=== PATIENT | female | born 1955 | race Caucasian/White ===

== ENCOUNTER 2017-03-29 08:19 | Inpatient (IN) | payer MEDICARE, MEDICAID ==
[~2017-03-29] VITALS: Ht 154.9 cm; Wt 41.9 kg
[2017-03-29] MEDS ORDERED: ADV250INH INH (08:35)
[2017-03-29] MEDS ORDERED: FOSI10TA2 PO (08:35)
[2017-03-29] MEDS ORDERED: ASPI1TAB PO (08:35)
[2017-03-29] MEDS ORDERED: SERT50TA PO (08:35)
[2017-03-29] MEDS ORDERED: SIMV40TA2 PO (08:35)
[2017-03-29] MEDS ORDERED: ATEN25TA PO (08:35)
[2017-03-29] MEDS ORDERED: NS 500 ML IV ONE (08:45)
[2017-03-29] MEDS ORDERED: FOSINOPRIL PO SCH (09:00)
--- NOTE | 2017-03-29 09:26 | REP ---
Clinical: Altered mental status with suspected seizures/syncope . Comparison: None . Findings: The ventricles, sulci, and cisterns are normal in position and appearance. Busch-white differentiation is maintained. No acute intracranial hemorrhage, mass/mass effect, pathology or trauma/injury. No evidence for acute infarction. No extra-axial fluid collection. Calvarium is intact. Paranasal sinuses and mastoid air cells are clear. Impression: Normal noncontrast head CT. No evidence for acute intracranial pathology or trauma/injury. Signed by Mike Vivas MD 03/29/2017 09:18 A
[2017-03-29 09:27] LABS: ADD MANUAL DIFFER YES; DIFF SLIDE NUMBER 74; MEAN CORPUSCULAR HEMOGLOBIN 35.5 pg (27.0-33.0); MEAN CORPUSCULAR VOLUME 94.9 fl (80.0-96.0); PLATELET COUNT, AUTOMATED 262 k/mm3 (150-450); RED CELL DISTRIBUTION WIDTH 11.5 % (11.5-14.5)
--- NOTE | 2017-03-29 09:27 | REP ---
Clinical: Altered mental status . Comparison: 04/23/2016 . Findings: The mediastinum and cardiac silhouette are stable and within normal limits for portable technique. The lung gallegos suggest mild bibasilar fibroatelectatic changes without focal consolidation, effusion, or pneumothorax. Skeletal structures are intact. Impression: Acute versus chronic bibasilar fibroatelectatic changes. Signed by Mike Vivas MD 03/29/2017 09:19 A
[2017-03-29 09:38] LABS: ABG BASE EXCESS -0.7 (-2.0-2.0); ABG HCO3 23.4 MEQ/L (22.0-26.0); ABG PARTIAL PRESSURE CO2 37.3 mmHg (35.0-45.0); ABG PARTIAL PRESSURE O2 61.5 mmHg (75.0-100.0); ABG STANDARD HCO3 23.7 MEQ/L (22.0-26.0); ABG TOTAL CO2 24.6 MEQ/L (23.0-31.0); ABG pH (ARTERIAL) 7.416 UNITS (7.350-7.450)
[2017-03-29 09:56] LABS: MEAN CORPUSCULAR HGB CONC 37.4 g/dl (32.0-36.5)
[2017-03-29 09:59] LABS: ALBUMIN 3.8 GM/DL (3.2-5.2); ALBUMIN/GLOBULIN RATIO 1.58 (1.00-1.93); ALKALINE PHOSPHATASE 156 U/L (45-117); ALT/SGPT 17 U/L (12-78); ANION GAP 12 MEQ/L (8-16); AST/SGOT 23 U/L (15-37); BILIRUBIN,DIRECT 0.4 MG/DL (0.0-0.2); BILIRUBIN,TOTAL 1.3 MG/DL (0.2-1.0); BLOOD UREA NITROGEN 2 MG/DL (7-18); CALCIUM LEVEL 8.1 MG/DL (8.8-10.2); CARBON DIOXIDE LEVEL 25 MEQ/L (21-32); CHLORIDE LEVEL 85 MEQ/L (98-107); CREATININE FOR GFR 0.58 MG/DL (0.55-1.02); GLOMERULAR FILTRATION RATE > 60.0 (>45); GLUCOSE, FASTING 160 MG/DL (80-110); SODIUM LEVEL 122 MEQ/L (136-145); TOTAL PROTEIN 6.2 GM/DL (6.4-8.2)
[2017-03-29 10:19] LABS: OSMOLALITY SERUM 246 MOSM/KG (280-301)
[2017-03-29 10:21] LABS: POTASSIUM SERUM 2.8 MEQ/L (3.5-5.1)
[2017-03-29 10:25] LABS: BASOPHILS 1 % (0-4)
[2017-03-29 10:31] LABS: ANISOCYTOSIS 1+; BURR CELLS 1+
[2017-03-29] MEDS: POTASSIUM CHLORIDE 10 MEQ SR TABLET PO ONE ×2 (11:45→11:52)
[2017-03-29] MEDS ORDERED: POTASSIUM CHLORIDE 10% LIQ 20 MEQ/15 ML UDC PO ONE (12:00)
[2017-03-29] MEDS ORDERED: SIMV20TA2 PO (13:49)
[2017-03-29] MEDS ORDERED: ALBU17IN INH (13:51)
[2017-03-29] MEDS ORDERED: INCR1INH INH (13:51)
[2017-03-29] MEDS ORDERED: NITR4TASL SL (13:52)
[2017-03-29] MEDS ORDERED: ALBUTEROL 90 MCG/ACT 8GM HFA INHALER INH PRN (14:00)
[2017-03-29] MEDS ORDERED: LORazepam 2 MG TAB PO PRN (14:00)
[2017-03-29] MEDS ORDERED: ONDANSETRON 4MG/2ML VIAL (J2405) IV PRN (14:00)
[2017-03-29] MEDS ORDERED: NITROGLYCERIN 0.4 MG SUBL TABLET SL PRN (14:00)
[2017-03-29] MEDS: KCL 40MEQ in NS 1000ML 1,000 ML IV SCH (14:48)
[2017-03-29] MEDS: PANTOPRAZOLE 40MG INJ (PROTONIX) (C9113) IV SCH (14:48)
[2017-03-29] MEDS: NICOTINE 21MG/24HR 1 EA TRANSDERMAL TD SCH (14:49)
[2017-03-29] MEDS ORDERED: AZIT200S30 PO (14:52)
[2017-03-29] MEDS ORDERED: AZIT20SS2 PO (14:52)
[2017-03-29] MEDS ORDERED: MAG SULF 1GM/100ML (MAG RUN) 1 GM in APPROPRIATE DILUENT 1 EA IV ONE (15:00)
--- NOTE | 2017-03-29 15:40 | HPE ---
DATE OF ADMISSION: 03/29/2017 CHIEF COMPLAINT: 61-year-old female brought in by family member due to history of shaking, loss of consciousness, rolling of her eye, that started earlier this morning. HISTORY OF PRESENT ILLNESS: This is a 61-year-old female with significant past medical history of coronary artery disease, hypertension, hyperlipidemia, chronic obstructive pulmonary disease (COPD), depression, who recently was diagnosed with inner ear infection and vertigo and currently being treated with antibiotic which she took first dose yesterday, name unknown at this time, who was brought in by family member due to history of seizure-like activity described as head and upper extremity shaking, rolling of her eyes backward, loss of consciousness, dropping to her knee with loss of urine and stool. Patient does not have any history of seizure activities in the past that patient is aware of or the family is aware of. Patient had this episode around 6 in the morning. Patient has a history of alcohol abuse. Patient states that she drinks two beers per night, but as per family member, may be up to four or more per night. Patient states that her last drink was last night, but as per family member, it was earlier this morning. Patient has a history of smoking 1-1/2 pack per day, but as per family member, she smokes three packs a day. Patient seemed to have a chronic cough, which is unchanged. Denies of any use of oxygen therapy at home, but she does have chronic sputum which is unchanged. Patient also had complained of low-grade fever at home with urinary urgency and intermittent incontinence. She also mentioned that she has foul-smelling urine that daly intermittently. Patient is resting comfortably in the emergency room. No seizure-like activity noted. Family at the bedside. REVIEW OF SYSTEMS: 10-point review of systems is negative, other than those described in the history of present illness (HPI). PAST MEDICAL HISTORY: Is significant for; Coronary artery disease. Hypertension. Hyperlipidemia. COPD. Depression. Recently diagnosed with inner ear infection and vertigo and is supposed to be on antibiotics. Alcohol abuse. SURGICAL HISTORY: Includes; Carpal tunnel surgery. Stent placement. SOCIAL HISTORY: Patient drinks 2-4 beers or perhaps more alcohol per night. Last drink was this morning as per family member. She smokes 1-1/2 to three packs per day. Denies intravenous (IV) drug abuse. FAMILY MEDICAL HISTORY: Noncontributory at this time. Patient is ALLERGIC to PENICILLIN, which causes hives. MEDICATIONS FROM HOME: Are as follows; - albuterol sulfate two puffs every 4 hours as needed - aspirin 81 mg by mouth daily - atenolol 25 mg by mouth daily - fosinopril 5 mg by mouth daily - Incruse Ellipta 62.5 mcg daily - nitroglycerine 0.4 sublingual every 5 minutes as needed for chest pain - Advair Diskus 250/50 mcg one puff twice a day - sertraline 100 mg by mouth daily - simvastatin 20 mg by mouth daily There seemed to be not a list of the antibiotic for her inner ear infection, but the medication is already reconciled. Will speak to the roofing technician and try to contact [facility] to obtain the antibiotic that the patient should be on. In terms of physical examination her vital signs are as follows: Last known temperature is; none for me to review at this time, but last pulse rate of 86, blood pressure is 129/77, heart rate of 86, saturating 100% on room air. Respiratory rate on my examination is 14. Again, no temperature for me to review at this time. HEENT: Normocephalic. No trauma noted. Inspection of the eyes, nose, and throat is within normal. Pupils equal, round, and reactive to light and accommodation. Mucosa is moist. Examination of her tongue did not show any obvious laceration. NECK: Is supple. No tracheal deviation. CARDIAC: S1, S2, regular rate and rhythm. Pulses present. LUNGS: Equal air entry. Did not hear any wheezes, rales, or rhonchi. ABDOMEN: Is soft, nontender. Bowel sounds present. LOWER EXTREMITIES: No significant pitting edema. Capillary refill present all four extremities. SKIN: Is intact. Warm to touch, afebrile. Patient is currently awake, alert, oriented, but intermittently confused and provides some history with some slight confusion, and does go off on slight tangent. Family at the bedside who provide most of the history and verifies and corrects patient's error in providing history. Patient's mood and affect does not seem to be agitated at this time. DIAGNOSTICS STUDIES: Patient had WBC, hemoglobin and hematocrit (H and H), and platelet count within normal. Sodium of 122, potassium 2.8, chloride 85, BUN of 2, glucose is 160, osmolality 246, calcium is 8.1, total bilirubin is 1.3, and direct bilirubin is 0.4, alkaline phosphatase is 156, total protein is 6.2, otherwise complete metabolic profile is within normal. Lactate is 1.7, within normal. Ammonia is within normal. TSH is within normal. Toxicology shows ethyl alcohol of 0.003, acetaminophen less than 2, and salicylate less than 1.7. Patient also had ABG showing pH of 7.4, pCO2 37.3, oxygen of 61.5, bicarbonate 23.4, saturating 91.9. No microbiology obtained. CT of the head as per radiology showed normal noncontrast CT. No evidence for acute intracranial pathology or trauma or injury. Chest x-ray as per radiology showed acute versus chronic bibasilar fibroatelectatic changes. Patient had an EKG showing heart rate of 80, sinus, nonspecific motion artifact, but no ST elevation, but there was slight ST depression in lead V5 and V6. ASSESSMENT/PLAN: This is a 61-year-old female with significant past medical history of alcohol abuse, coronary artery disease, hypertension, hyperlipidemia, chronic obstructive pulmonary disease (COPD), depression, who presented with history of seizure-like activity and some confusion. 1. Seizure-like activity with confusion, most likely secondary due to alcohol abuse and possible withdrawal. Patient will be placed on seizure precaution, Intravenous (IV) fluids, Clinical [place] Withdrawal Assessment (CIWA) protocol, with Ativan protocol as well. Multivitamin, thiamine, folic acid, Protonix. Will obtain lipase level. I do not suspect this to be a true seizure as no history of tonic-clonic description, but there is some history of urinary incontinence and shaking along with possible postictal-like signs, therefore, will obtain electroencephalogram (EEG) for further evaluation. Neurology consult as needed. We will defer consultation to the oncoming team as needed. Will also further evaluate with urinalysis (UA) to see if there are any signs of infection and obtain temperature to evaluate for any fever, but on my physical examination, did not felt patient had a fever. Patient also to be on seizure precaution. 2. Hypokalemia. Patient states that she has difficulty swallowing certain pills. Did not tolerate by mouth supplementation in the emergency room, therefore, will provide supplementation of potassium and magnesium via IV. Continue to monitor and replace as needed. 3. Hyponatremia. Most likely secondary due to problem #1. Continue to monitor. Gentle hydration. 4. Coronary artery disease, hypertension, hyperlipidemia. Resume aspirin, atenolol, fosinopril, nitroglycerine as needed, and simvastatin. 5. Chronic obstructive pulmonary disease (COPD). Resume home regimen. Smoking cessation strongly advised and nicotine patch offered. 6. Depression. Resume sertraline. 7. History of inner ear infection. Vertigo. Will try to obtain patient's antibiotic from [facility]. Will speak to the pharmacy technicians. 8. History of dysuria. Will obtain UA and treat as needed. 9. Deep venous thrombosis (DVT) prophylaxis.
[2017-03-29 16:20] VITALS: BP 143/83
[2017-03-29 17:06] VITALS: BP 143/83
--- NOTE | 2017-03-29 18:01 | ECGEPIP ---
Stationary ECG Study [facility] - ED Test Date: 2017-03-29 Pat Name: YAN ONEAL Department: Room: - Gender: F Pattern Ruler: ct : 1955 Requested By: JUDY Velazquez Order Number: [id number] Reading MD: Juan M Figueroa Measurements Intervals [place] Rate: 80 P: 66 UT: 146 QRS: 87 QRSD: 126 T: 5 QT: 452 QTc: 523 Interpretive Statements SINUS RHYTHM INC. RBBB NSTTW ABNORMALITIES BASELINE ARTIFACT AFFECTS INTERPRETATION NO PRIORS Electronically Signed On 03-29-2017 18:01:13 EDT by Juan M Figueroa
[2017-03-29] MEDS: THIAMINE 100 MG TAB PO SCH ×2 (18:05→21:02)
[2017-03-29] MEDS: HEPARIN SOD (PORCINE) 5000 UNITS/ML VIAL SC SCH ×2 (18:05→21:02)
[2017-03-29] MEDS: SERTRALINE 100 MG TAB PO SCH (18:28)
[2017-03-29] MEDS: FOLIC ACID 1 MG TAB PO SCH (18:28)
[2017-03-29] MEDS: ASPIRIN 81 MG ENTERIC TAB PO SCH (18:28)
[2017-03-29] MEDS: MULTIVITAMINS/MINERALS THERAP 1 TAB PO SCH (18:28)
[2017-03-29] MEDS: FOSINOPRIL 10 MG TAB PO SCH (18:28)
[2017-03-29] MEDS: ATENOLOL 25 MG TAB PO SCH (18:42)
[2017-03-29 18:44] LABS: MAGNESIUM LEVEL 2.4 MG/DL (1.8-2.4)
[2017-03-29 19:00] LABS: ANION GAP 8 MEQ/L (8-16); BLOOD UREA NITROGEN 2 MG/DL (7-18); CALCIUM LEVEL 8.4 MG/DL (8.8-10.2); CARBON DIOXIDE LEVEL 26 MEQ/L (21-32); CHLORIDE LEVEL 92 MEQ/L (98-107); CREATININE FOR GFR 0.47 MG/DL (0.55-1.02); GLOMERULAR FILTRATION RATE > 60.0 (>45); GLUCOSE, FASTING 114 MG/DL (80-110); POTASSIUM SERUM 3.5 MEQ/L (3.5-5.1); SODIUM LEVEL 126 MEQ/L (136-145)
[2017-03-29] MEDS: IPRATROPIUM 0.5MG/ALBUTEROL 2.5MG INH SOL UD 3ML (DUONEB)(J7620) NEB SCH (20:00)
[2017-03-29 20:06] VITALS: BP 116/70
[2017-03-29] MEDS: ADVAIR DISKUS 250/50 INH PWD INH SCH (20:11)
[2017-03-29] MEDS: SIMVASTATIN 20 MG TAB PO SCH (21:02)
[2017-03-30] VITALS (12 sets, daily range): BP systolic 112–162; BP diastolic 59–103
[2017-03-30] MEDS: IPRATROPIUM 0.5MG/ALBUTEROL 2.5MG INH SOL UD 3ML (DUONEB)(J7620) NEB SCH ×4 (02:00→20:17)
[2017-03-30 05:12] LABS: MEAN CORPUSCULAR HEMOGLOBIN 35.3 pg (27.0-33.0); MEAN CORPUSCULAR VOLUME 95.2 fl (80.0-96.0); RED CELL DISTRIBUTION WIDTH 12.1 % (11.5-14.5); WHITE BLOOD COUNT 8.1 K/mm3 (4.0-10.0)
[2017-03-30] MEDS: KCL 40MEQ in NS 1000ML 1,000 ML IV SCH ×2 (05:17→20:04)
[2017-03-30] MEDS: HEPARIN SOD (PORCINE) 5000 UNITS/ML VIAL SC SCH ×3 (05:21→21:11)
[2017-03-30 05:38] LABS: ANION GAP 9 MEQ/L (8-16); BLOOD UREA NITROGEN 3 MG/DL (7-18); CALCIUM LEVEL 8.3 MG/DL (8.8-10.2); CARBON DIOXIDE LEVEL 22 MEQ/L (21-32); CHLORIDE LEVEL 99 MEQ/L (98-107); CREATININE FOR GFR 0.53 MG/DL (0.55-1.02); GLOMERULAR FILTRATION RATE > 60.0 (>45); GLUCOSE, FASTING 156 MG/DL (80-110); MAGNESIUM LEVEL 2.2 MG/DL (1.8-2.4); POTASSIUM SERUM 3.5 MEQ/L (3.5-5.1); SODIUM LEVEL 130 MEQ/L (136-145)
[2017-03-30] MEDS ORDERED: OXAZEPAM 10 MG CAP PO SCH ×2 (06:00→08:30)
[2017-03-30] MEDS: ADVAIR DISKUS 250/50 INH PWD INH SCH ×2 (07:24→21:00)
[2017-03-30] MEDS ORDERED: OXAZEPAM 10 MG CAP PO PRN (08:30)
--- NOTE | 2017-03-30 11:53 | REP ---
MRA BRAIN WITHOUT CONTRAST: HISTORY: Infarction. 3D [id number]-eq-wusuiy MR angiography was performed at the level of the [place]. A 2.8 mm aneurysm is present arising from the cavernous right internal carotid artery. There is no other aneurysm or arteriovenous malformation. Mild atherosclerotic disease involves the cavernous internal carotid arteries. Major intracranial vessels are patent. The distal left vertebral artery is not seen secondary to severe atherosclerotic disease. The right vertebral artery is dominant. IMPRESSION: 1. 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 2. Atherosclerotic disease as described above. Signed by Rufino Burton MD 03/30/2017 12:20 P
--- NOTE | 2017-03-30 12:16 | REP ---
MRI BRAIN WITHOUT CONTRAST: HISTORY: Seizure. COMPARISON: CT 03/29/2017 Scattered punctate areas of increased signal intensity on T2-weighted images are present in the periventricular and subcortical white matter. This represents small vessel ischemic disease. There is no intraparenchymal hemorrhage, infarct, mass or midline shift. The sella turcica is partially empty. The ventricular system and cortical sulci are dilated consistent with minimal volume loss. There is no extracerebral collection. The sinuses are clear. IMPRESSION: 1. Minimal small vessel ischemic disease. 2. Minimal volume loss. Signed by Rufino Burton MD 03/30/2017 12:20 P
--- NOTE | 2017-03-30 12:20 | REP ---
MRA CAROTIDS WITH AND WITHOUT CONTRAST: HISTORY: Infarction. CONTRAST: 20 mL. Unenhanced 2D [id number] and contrast enhanced MR angiography were performed at the level of the carotid bifurcations. The distal common carotid arteries and origins of the external and internal carotid arteries are normal. The right vertebral artery is dominant. The right vertebral artery is patent. The origin of the left vertebral artery and very distal left vertebral artery are not seen secondary to severe stenosis. There are areas of mild atherosclerotic disease throughout the course of the left vertebral artery. IMPRESSION: 1. There is no carotid stenosis. 2. Atherosclerotic disease as described above of the left vertebral artery. Signed by Rufino Burton MD 03/30/2017 12:58 P
[2017-03-30] MEDS: SERTRALINE 100 MG TAB PO SCH (12:26)
[2017-03-30] MEDS: FOSINOPRIL 10 MG TAB PO SCH (12:26)
[2017-03-30] MEDS: ASPIRIN 81 MG ENTERIC TAB PO SCH (12:26)
[2017-03-30] MEDS: MULTIVITAMINS/MINERALS THERAP 1 TAB PO SCH (12:27)
[2017-03-30] MEDS: ATENOLOL 25 MG TAB PO SCH (12:27)
[2017-03-30] MEDS: FOLIC ACID 1 MG TAB PO SCH (12:27)
[2017-03-30] MEDS: THIAMINE 100 MG TAB PO SCH ×2 (12:27→21:11)
[2017-03-30] MEDS: NICOTINE 21MG/24HR 1 EA TRANSDERMAL TD SCH (12:28)
[2017-03-30] MEDS ORDERED: LORazepam 2 MG/ML VIAL (J2060) As Ordered ONE (13:50)
[2017-03-30] MEDS: LORazepam 2 MG/ML VIAL (J2060) IV PRN (13:52)
[2017-03-30] MEDS: PANTOPRAZOLE 40MG INJ (PROTONIX) (C9113) IV SCH (14:08)
[2017-03-30 14:10] LABS: ABG BASE EXCESS -12.4 (-2.0-2.0); ABG HCO3 13.3 MEQ/L (22.0-26.0); ABG PARTIAL PRESSURE CO2 30.9 mmHg (35.0-45.0); ABG PARTIAL PRESSURE O2 99.1 mmHg (75.0-100.0); ABG TOTAL CO2 14.3 MEQ/L (23.0-31.0); ABG pH (ARTERIAL) 7.253 UNITS (7.350-7.450)
[2017-03-30] MEDS ORDERED: LORazepam 2 MG/ML VIAL (J2060) IV PRN (14:15)
[2017-03-30 14:19] LABS: MEAN CORPUSCULAR HEMOGLOBIN 34.9 pg (27.0-33.0); MEAN CORPUSCULAR HGB CONC 36.2 g/dl (32.0-36.5); MEAN CORPUSCULAR VOLUME 96.4 fl (80.0-96.0); RED CELL DISTRIBUTION WIDTH 11.8 % (11.5-14.5); WHITE BLOOD COUNT 6.1 K/mm3 (4.0-10.0)
[2017-03-30] MEDS ORDERED: levETIRAcetam INJection 1,000 MG in D5W 100 ML IV ONE (14:30)
--- NOTE | 2017-03-30 14:44 | REP ---
PORTABLE CHEST, ONE VIEW: HISTORY: Shortness of breath. COMPARISON: 03/29/2017. Increased density is present in the right lower lobe consistent with atelectasis or infiltrate. A small right pleural effusion is present. The left lung is clear. The heart is normal in size. The pulmonary vasculature is normal in appearance. IMPRESSION: 1. Right lower lobe atelectasis or infiltrate. 2. Small right pleural effusion. Signed by Rufino Burton MD 03/30/2017 02:48 P
[2017-03-30 14:45] LABS: ALBUMIN 3.9 GM/DL (3.2-5.2); ALBUMIN/GLOBULIN RATIO 1.44 (1.00-1.93); ALKALINE PHOSPHATASE 158 U/L (45-117); ALT/SGPT 16 U/L (12-78); ANION GAP 16 MEQ/L (8-16); BILIRUBIN,TOTAL 1.1 MG/DL (0.2-1.0); BLOOD UREA NITROGEN 3 MG/DL (7-18); CALCIUM LEVEL 8.6 MG/DL (8.8-10.2); CARBON DIOXIDE LEVEL 16 MEQ/L (21-32); CHLORIDE LEVEL 101 MEQ/L (98-107); CREATININE FOR GFR 0.78 MG/DL (0.55-1.02); GLOMERULAR FILTRATION RATE > 60.0 (>45); GLUCOSE, FASTING 155 MG/DL (80-110); MAGNESIUM LEVEL 2.4 MG/DL (1.8-2.4); POTASSIUM SERUM 3.4 MEQ/L (3.5-5.1); SODIUM LEVEL 133 MEQ/L (136-145); TOTAL PROTEIN 6.6 GM/DL (6.4-8.2)
[2017-03-30 14:48] LABS: AST/SGOT 17 U/L (15-37)
[2017-03-30] MEDS ORDERED: SODIUM CHLORIDE 0.9% 1000 ML IV ONE (15:00)
[2017-03-30] MEDS ORDERED: MOXIFLOXACIN HCL 400 MG in APPROPRIATE DILUENT 1 EA IV SCH (16:00)
[2017-03-30] MEDS: OXAZEPAM 10 MG CAP PO SCH ×2 (17:15→23:31)
[2017-03-30 17:47] LABS: ABG BASE EXCESS -3.5 (-2.0-2.0); ABG HCO3 19.8 MEQ/L (22.0-26.0); ABG PARTIAL PRESSURE CO2 30.8 mmHg (35.0-45.0); ABG PARTIAL PRESSURE O2 122.8 mmHg (75.0-100.0); ABG STANDARD HCO3 21.6 MEQ/L (22.0-26.0); ABG TOTAL CO2 20.7 MEQ/L (23.0-31.0); ABG pH (ARTERIAL) 7.426 UNITS (7.350-7.450)
--- NOTE | 2017-03-30 18:16 | CCN ---
DATE: 03/30/2017 The patient was initially seen and examined in the morning. Reported that she thinks that she had a seizure. She is a poor historian. Admitted yesterday night. Denies any chest pain, pressure or discomfort. Unable to tell where she thinks she is weak. On assessment, her right upper extremity and right shoulder seem to be weak. The patient is leaning to her right side. Denies any chest pain, pressure or discomfort, fevers or chills. During this afternoon around 2:00 p.m. a rapid response team was called for seizure. The patient was seen during rapid response team to have symptoms of seizure with eyes rolling backwards, muscles tensed up, shaking movements. No tongue biting noticed. Episode lasted about 3 minutes. No vomiting has been noticed. The patient was not eating and was given 2 mg of Ativan IV push. Furthermore, a stat lab was sent to show lactic acidosis. The patient was given IV fluids. ABG was also done. X-ray was also done. Antibiotic was started for possible aspiration. Case was discussed with Dr. Tang. Keppra has been started. At that time, further history was taken from the family. As per family, the patient has been smoking and drinking on a daily basis, smoking about one to two packs of cigarettes per day. Furthermore, drinking about two to six cans of beer per night. Over the past 24 hours, as per family, the patient has not been sleeping at all. The patient has been in depression for the past year or so. Due to family, the patient has thoughts of hurting herself or killing herself but has not formulated a plan. The patient currently is postictal. Moves bilateral lower extremities. Withdraws from pain. Pupils are bilaterally equal and reactive but not really following commands yet with blood pressure in the 130/80, tachycardic to 109 to 130 range. Fingerstick done at that time was 140. Further laboratories are pending. VITAL SIGNS: Temperature 97.4, pulse 97, respirations 20, blood pressure 149/80, pulse oximetry 100% on 3 liters nasal cannula. LABORATORY DATA: WBC 6.1, hemoglobin and hematocrit 15.1/41.8, platelets 308. Chemistry: Sodium 133, potassium 3.4, chloride 101, bicarbonate 16, BUN 3, creatinine 0.78, lactic acid 8.4. Cardiac enzymes are negative. Prolactin 14.1. PHYSICAL EXAMINATION: GENERAL: In the morning, the patient is alert and follows commands. Alert and oriented times two, but currently the patient withdraws to pain but not really follows commands, arousable to noxious stimuli. HEENT: Normocephalic, atraumatic. PULMONARY: Right sided rhonchi. CARDIAC: Tachycardia, regular. S1, S2. ABDOMEN: Soft, nontender, nondistended. EXTREMITIES: No edema in bilateral lower extremities. NEUROLOGIC: Cranial nerves II through XII grossly intact. Able to withdraw from pain from bilateral upper and lower extremities. In the morning, the patient's right shoulder seems to be slightly weaker with right upper extremity also slightly weaker. MRI of the brain shows minimal small vessel ischemic disease, minimal volume loss. MRA of the carotids shows atherosclerotic changes. MRA of the brain shows a 2.8 mm cavernous sinus right internal jugular artery aneurysm. ASSESSMENT AND PLAN: This is a 61-year-old female patient with underlying medical history of alcohol abuse, coronary arterial disease, hypertension, dyslipidemia, chronic obstructive pulmonary disease (COPD), smoker, depression, presented with seizure like activity and confusion. 1. Seizure like activity, etiology unknown, possibly secondary to alcohol. Neurology consulted. Ativan 2 mg has been given on the floor during the rapid response. The patient currently is on Keppra 1 gram has been given IV. The patient is currently on 750 mg of Keppra IV twice a day. IV fluids. Serax standing and as needed with Ativan as needed intravenously. Monitor for withdrawal. Follow neurology recommendations. MRI appreciated. Followup EEG report. 2. Rule out CVA. The patient is on aspirin, statin. Monitor for blood pressure. MRI and MRA of the brain done. MRA of the neck has been appreciated. Neurology consulted. Telemetry monitoring. The patient has an underlying history of smoking. Cardiac enzymes appreciated. Followup A1/c and lipid panel. Neuro checks. Followup neurology recommendations. 3. Alcohol abuse. Monitor for withdrawal. Telemetry. Serax standing and as needed. Folic acid, thiamine, and multivitamin. IV fluids. 4. Aspiration pneumonia. Likely secondary to seizure. Followup cultures. Continue Avelox. 5. Lactic acidosis secondary to seizure. Repeat lactic acid. IV fluids. 6. Suicidal ideation, as per family. The patient currently is postictal. We will consider psychiatric consultation, one-to-one suicide precaution at this time until the patient is more awake. 7. Hypertension. Continue current medications. 8. Depression. Continue current medications, suicide precautions. Consider psychiatric consultation once the patient is more awake. 9. Hypokalemia. We will repeat laboratories. Continue current fluids. 10. Smoking. Nicotine patch. We will child and family counselor the patient once the patient is more awake. 11. Deep vein thrombosis (DVT) prophylaxis. Heparin subcutaneously. Critical care time spent: 40 minutes.
--- NOTE | 2017-03-30 20:18 | ECHO ---
DATE OF PROCEDURE: 03/30/2017 REFERRING PHYSICIAN: Barbie Wheatley MD INDICATION: Cerebrovascular accident. HEIGHT: 155 cm WEIGHT: 44 kg DIMENSIONS: IVS: 0.8 LV: 4.0 LVPW: 0.9 LA: 2.9 Aorta: 2.8 FINDINGS: The study is of good technical quality. Left ventricle is normal size and systolic function with estimated left ventricular ejection fraction (LVEF) 60-65%. Right ventricle also appears grossly normal even though it was poorly seen. Both atria appear normal. Atrial septum is mildly deviated to right. Aortic, mitral, tricuspid and pulmonic valves all appear normal. No pericardial effusion is noted. Inferior vena cava is normal size. Aortic root and aortic arch appear normal. Abdominal aorta was poorly seen, but there appears to be presence of some degree of atherosclerosis. Doppler interrogation reveals no aortic stenosis or insufficiency. There is mild mitral insufficiency and mild tricuspid insufficiency. Calculated pulmonary artery pressure is within normal limits. Pulmonic valve is functionally competent. Evaluation diastolic function performed in the setting of sinus tachycardia with heart rate approximately 100 beats per minute reveals fusion of E and A-wave on mitral inflow. But there are normal tissue Doppler velocities of mitral annulus and consequently I estimate that diastolic function is preserved. CONCLUSIONS: 1. Study is of good technical quality. 2. Normal LV size, systolic and diastolic function. 3. No significant valvular disease. 4. Normal central venous pressure and likely normal pulmonary artery pressure. 5. Some degree of atherosclerosis is apparent in abdominal aorta. COMMENT: Subacute bacterial endocarditis (SBE) prophylaxis is not recommended. Study does not provide obvious explanation for cerebrovascular accident. [facility]
[2017-03-30] MEDS: SIMVASTATIN 20 MG TAB PO SCH (21:11)
[2017-03-31] VITALS (9 sets, daily range): BP systolic 119–146; BP diastolic 58–87; O2SAT 96
[2017-03-31] MEDS: IPRATROPIUM 0.5MG/ALBUTEROL 2.5MG INH SOL UD 3ML (DUONEB)(J7620) NEB SCH ×4 (02:00→20:00)
[2017-03-31] MEDS ORDERED: levETIRAcetam INJection 750 MG in D5W 100 ML IV SCH (03:00)
[2017-03-31] MEDS: KCL 40MEQ in NS 1000ML 1,000 ML IV SCH ×3 (03:32→21:05)
[2017-03-31 06:01] LABS: MEAN CORPUSCULAR HEMOGLOBIN 35.2 pg (27.0-33.0); MEAN CORPUSCULAR HGB CONC 35.8 g/dl (32.0-36.5); MEAN CORPUSCULAR VOLUME 98.3 fl (80.0-96.0); RED CELL DISTRIBUTION WIDTH 12.3 % (11.5-14.5)
[2017-03-31] MEDS: OXAZEPAM 10 MG CAP PO SCH ×3 (06:19→17:32)
[2017-03-31] MEDS: HEPARIN SOD (PORCINE) 5000 UNITS/ML VIAL SC SCH ×3 (06:20→21:11)
[2017-03-31 06:42] LABS: ANION GAP 7 MEQ/L (8-16); BLOOD UREA NITROGEN 2 MG/DL (7-18); CALCIUM LEVEL 8.1 MG/DL (8.8-10.2); CARBON DIOXIDE LEVEL 21 MEQ/L (21-32); CHLORIDE LEVEL 109 MEQ/L (98-107); CHOLESTEROL LEVEL 106 MG/DL (<200); CREATININE FOR GFR 0.46 MG/DL (0.55-1.02); GLOMERULAR FILTRATION RATE > 60.0 (>45); GLUCOSE, FASTING 97 MG/DL (80-110); MAGNESIUM LEVEL 1.8 MG/DL (1.8-2.4); POTASSIUM SERUM 4.1 MEQ/L (3.5-5.1); SODIUM LEVEL 137 MEQ/L (136-145); TRIGLYCERIDES LEVEL 82 MG/DL (<150)
[2017-03-31] MEDS: ADVAIR DISKUS 250/50 INH PWD INH SCH ×2 (07:38→20:47)
--- NOTE | 2017-03-31 07:58 | CR ---
DATE OF CONSULTATION: 03/30/2017 REFERRING PHYSICIAN: Dr. Etelvina Rizo REASON FOR CONSULTATION: Seizures. HISTORY OF PRESENT ILLNESS: Justina Alves is a 61-year-old woman with a history of chronic obstructive pulmonary disease (COPD), depression, coronary artery disease, hypertension, tobacco and alcohol abuse who was at her baseline state of health until yesterday morning. According to the patient's sister who lives with her, the patient was getting more and more confused. She did not sleep that night at all. She was wandering around the house. She appeared confused. She was talking to people who were not there. She remained awake until 6:45 in the morning when she had her seizure. She fell down and had shaking of her entire body for a couple of minutes. She was confused afterwards. She lost control of her bowel and bladder. Around 1:45 p.m. yesterday while she was already admitted at [facility], she had her second seizure. Her eyes rolled back, she was drooling and her upper body stiffened up followed by shaking. She was cyanotic. There was no urinary or bowel incontinence or tongue biting in her second spell. It lasted for 3-4 minutes. She was given Ativan for her seizure and she has been sleeping for the last 6 hours. According to the patient's daughter, the patient has not been herself. She has given up on herself. She has not been taking care of her. Her father and brother over the last few years. She has been depressed for a few years. She does not eat or drink. She keeps smoking continuously and drinks 4-5 beers every night. She has history of bowel incontinence and diarrhea. She does not eat due to fear that she may not be able to go outside as she may have bowel incontinence. She has a history of chronic headaches on a daily basis. She complains of chronic neck and back pain. The patient is currently drowsy and is unable to provide history. Information was obtained mostly from the patient's daughter who was present in the room. The patient had a low grade fever at home in the urinary urgency, intermittent urinary incontinence and foul-smelling urine, which burned intermittently. PAST MEDICAL HISTORY: Coronary artery disease. Hypertension. COPD. Dyslipidemia. Alcohol abuse. Depression. Carpal tunnel surgery. Coronary artery angioplasty. SOCIAL HISTORY: She smokes 2-3 packs per day. She drinks 3-5 beers every night. FAMILY HISTORY: Unremarkable and noncontributory. ALLERGIES: 1. PENICILLIN. HOME MEDICATIONS: - albuterol inhaler 2 puffs q.4 h p.r.n. - aspirin 81 mg p.o. daily - atenolol 25 mg daily - fosinopril 5 mg p.o. daily - INCRUSE Ellipta 62.5 mcg daily - nitroglycerin 0.4 mg sublingual every 5 minutes as needed for chest pain - Advair Diskus 250/50 micrograms 1 puff b.i.d. - Zoloft 100 mg by mouth daily - simvastatin 20 mg p.o. daily REVIEW OF SYSTEMS: All systems were reviewed and were found to be noncontributory except as mentioned in history present illness. PHYSICAL EXAMINATION: Temperature 97.4, pulse 97, respiratory rate 20, blood pressure 149/80, 100% saturation on 3 liters nasal cannula oxygen. HEART: Regular rate and rhythm. LUNGS: Clear to auscultation. ABDOMEN: Soft, nontender, nondistended. MUSCULOSKELETAL: No gross musculoskeletal abnormalities. She has decreased peripheral pulses. There is no pedal edema. EAR/NOSE/THROAT: Examination is within normal limits. The patient is drowsy but briefly wakes up. She is unable to follow commands. She moves all four extremities equally well. Sensory and cerebellar examination could not be performed. Deep tendon flexes 2+ throughout. Gait could not be tested. DIAGNOSTIC STUDIES: MRI and MRA of brain showed mild small-vessel ischemic disease of brain and 2.8 mm right internal carotid artery aneurysm without any acute disease. MRA of neck showed vertebral artery mild stenosis. ASSESSMENT: 1. Generalized tonic-clonic seizures. 2. Small vessel ischemic disease of brain. 3. 2.8 mm right internal carotid artery aneurysm. 4. Tobacco and alcohol abuse. 5. Depression. 6. History of diarrhea and bowel incontinence without urinary incontinence at home. PLAN: 1. EEG. 2. Keppra 1000 mg IV now and 750 mg p.o. or IV b.i.d. 3. She must quit smoking and alcohol abuse. 4. MRI cervical spine. 5. She may need appropriate GI workup for diarrhea and bowel incontinence if her MRI cervical spine is unremarkable. 6. She should not be driving. Seizure precautions were explained to her daughter. 7. Follow with us in one month after hospital discharge.
[2017-03-31] MEDS: NICOTINE 21MG/24HR 1 EA TRANSDERMAL TD SCH (09:47)
[2017-03-31] MEDS: CLINDAMYCIN 600 MG in APPROPRIATE DILUENT 1 EA IV SCH ×2 (09:47→17:32)
[2017-03-31] MEDS: ASPIRIN 81 MG ENTERIC TAB PO SCH (09:48)
[2017-03-31] MEDS: FOSINOPRIL 10 MG TAB PO SCH (09:48)
[2017-03-31] MEDS: THIAMINE 100 MG TAB PO SCH ×2 (09:48→21:05)
[2017-03-31] MEDS: levETIRAcetam 250MG TABLET (KEPPRA) PO SCH ×2 (09:48→21:05)
[2017-03-31] MEDS: MULTIVITAMINS/MINERALS THERAP 1 TAB PO SCH (09:48)
[2017-03-31] MEDS: ATENOLOL 25 MG TAB PO SCH (09:49)
[2017-03-31] MEDS: SERTRALINE 100 MG TAB PO SCH (09:49)
[2017-03-31] MEDS: FOLIC ACID 1 MG TAB PO SCH (09:49)
[2017-03-31] MEDS: LACTOBACILLUS ACIDOPHILUS CAP (BACID) PO SCH ×2 (09:49→17:32)
[2017-03-31] MEDS: PANTOPRAZOLE 40MG INJ (PROTONIX) (C9113) IV SCH (13:51)
--- NOTE | 2017-03-31 14:59 | IPN ---
DATE: 03/31/2017 The patient is seen and examined at the bedside. Chart has been reviewed. This morning, the patient appears to be arousable, answers a few questions but not fully following commands. She is able to open her eyes and answer some questions but goes back to sleep. She is not able to wiggle her toes this morning and appears to be lethargic. PHYSICAL EXAMINATION: VITAL SIGNS: Temperature 98, pulse 119, respiratory rate 20, blood pressure 119/79, 84% on three liters nasal cannula. GENERAL: The patient is awake, alert, and oriented to person only. She appears to be lethargic, goes in and out and goes to sleep during the examination. She otherwise denies any nausea, vomiting, abdominal pain. She complains of generalized weakness and sleepiness. LUNGS: Diminished. HEART: S1, S2, sinus rhythm. ABDOMEN: Soft, nontender, nondistended. EXTREMITIES: No pitting edema. LABORATORY DATA: White count 6, hemoglobin 12, hematocrit 34, platelet count 262. Sodium 137, potassium 4.1, chloride 109, bicarbonate 21, BUN 2, creatinine 0.46, glucose of 97, A1c of 5.4. Chest x-ray 03/30/2017 shows right lower lobe atelectasis or infiltrate, small right pleural effusion. MRI of the brain 03/30/2017 shows small 2.8 mm cavernous right internal carotid artery aneurysm, atherosclerotic disease. Brain MRI shows minimal small vessel ischemic disease. ASSESSMENT AND PLAN: This is a 61-year-old alcoholic with history of significant alcohol abuse, MAX cart yesterday due to seizure activity, was given IV Keppra and Avelox for right lower lobe infiltrate, lactic acidosis due to seizure activity. The patient has been afebrile with no white count. CURRENT ISSUES: 1. Tonic-clonic seizures. Neurology has been consulted. Currently on oral Keppra. Swallow evaluation. She has no signs of aspiration. Minimize all sedatives and other hypnotics. 2. Incidental finding of 2.8 mm right internal carotid artery aneurysm. Outpatient followup and monitoring. 3. Small vessel ischemic disease. Currently on Zocor and aspirin. 4. Hypertension, on atenolol. 5. Active cigarette use. Tobacco cessation counseling, nicotine patch. 6. Acute encephalopathy secondary to recent seizure activity. Most likely secondary to alcohol. Currently on Keppra. Serax as needed. MRI negative for acute cerebrovascular accident (CVA). 7. Lactic acidosis, secondary to seizure. 8. Right lower lobe pneumonia. Swallow evaluation showed no signs of aspiration. Currently on Avelox. Await sputum cultures. Clindamycin may be better for anaerobic coverage. 9. Depression. Suicide precautions. Psychiatric consult once the patient is much more awake. 10. Deep vein thrombosis (DVT) prophylaxis. Subcutaneous heparin. MTDD
[2017-03-31] MEDS: IPRATROPIUM 0.5MG/ALBUTEROL 2.5MG INH SOL UD 3ML (DUONEB)(J7620) NEB PRN (17:52)
[2017-03-31] MEDS: SIMVASTATIN 20 MG TAB PO SCH (21:05)
[2017-04-01] VITALS: BP 141/78
[2017-04-01] MEDS: OXAZEPAM 10 MG CAP PO SCH ×4 (00:02→17:34)
[2017-04-01] MEDS: CLINDAMYCIN 600 MG in APPROPRIATE DILUENT 1 EA IV SCH ×3 (00:02→17:33)
[2017-04-01] MEDS: IPRATROPIUM 0.5MG/ALBUTEROL 2.5MG INH SOL UD 3ML (DUONEB)(J7620) NEB SCH ×4 (01:23→18:00)
[2017-04-01] MEDS: IPRATROPIUM 0.5MG/ALBUTEROL 2.5MG INH SOL UD 3ML (DUONEB)(J7620) NEB PRN (03:36)
[2017-04-01 04:00] VITALS: BP 139/83
[2017-04-01 05:32] LABS: MEAN CORPUSCULAR HEMOGLOBIN 35.7 pg (27.0-33.0); MEAN CORPUSCULAR HGB CONC 35.7 g/dl (32.0-36.5); MEAN CORPUSCULAR VOLUME 100.1 fl (80.0-96.0); RED CELL DISTRIBUTION WIDTH 12.3 % (11.5-14.5); WHITE BLOOD COUNT 5.4 K/mm3 (4.0-10.0)
[2017-04-01 05:39] LABS: ANION GAP 6 MEQ/L (8-16); BLOOD UREA NITROGEN 2 MG/DL (7-18); CALCIUM LEVEL 8.3 MG/DL (8.8-10.2); CARBON DIOXIDE LEVEL 23 MEQ/L (21-32); CHLORIDE LEVEL 105 MEQ/L (98-107); CREATININE FOR GFR 0.45 MG/DL (0.55-1.02); GLOMERULAR FILTRATION RATE > 60.0 (>45); GLUCOSE, FASTING 93 MG/DL (80-110); MAGNESIUM LEVEL 1.8 MG/DL (1.8-2.4); POTASSIUM SERUM 4.4 MEQ/L (3.5-5.1); SODIUM LEVEL 134 MEQ/L (136-145)
[2017-04-01] MEDS: KCL 40MEQ in NS 1000ML 1,000 ML IV SCH (05:41)
[2017-04-01] MEDS: HEPARIN SOD (PORCINE) 5000 UNITS/ML VIAL SC SCH ×3 (05:42→20:23)
--- NOTE | 2017-04-01 07:11 | EEG ---
DATE OF EE03/30/2017 REFERRING PHYSICIAN: Barbie Wheatley MD DIAGNOSIS: Seizure. EEG NUMBER: [id number] HISTORY: Patient is a 61-year-old woman with a history of alcohol abuse, smoking and was admitted at [facility] due to recurrent seizures. She is confused and drowsy. She is currently on Keppra, Ativan, Serax, thiamine, aspirin, atenolol, Zoloft, simvastatin, fosinopril, etc. TECHNICAL DESCRIPTION: This digital EEG was recorded by 21 scalp, ear and two EKG electrodes and was reviewed in bipolar and referential montages following reformatting in 10-20 international electrode placement system. INTERPRETATION: The patient was noted to be in awake and drowsy states during this EEG. Resting background rhythm consisted of 3-4 Hz delta activity measuring 15-100 microvolts in amplitude. The patient remained drowsy and lethargic throughout this EEG. No clear sleep stages were recorded. Hyperventilation could not be performed. Photic stimulation remained unremarkable. EKG revealed normal sinus rhythm. Frequent right temporal and parietal spikes and sharp waves were noted. They likely originated in the right temporal head region with spread to right parietal head region. No clinical or electrographic seizures were recorded. CONCLUSION: This EEG in awake and drowsy states is abnormal due to presence of right temporal and parietal epileptiform discharges consistent with focal, cortical, structural, or functional abnormality with epileptic potential. In addition, generalized slowing is consistent with nonspecific diffuse cerebral dysfunction such as seen in encephalopathy due to multiple potential causes. Clinical correlation is recommended.
[2017-04-01] MEDS: ADVAIR DISKUS 250/50 INH PWD INH SCH ×2 (07:17→19:31)
[2017-04-01 08:00] VITALS: BP 138/75
[2017-04-01 08:40] VITALS: BP 138/75
[2017-04-01] MEDS: ATENOLOL 25 MG TAB PO SCH (10:08)
[2017-04-01] MEDS: MULTIVITAMINS/MINERALS THERAP 1 TAB PO SCH (10:08)
[2017-04-01] MEDS: LACTOBACILLUS ACIDOPHILUS CAP (BACID) PO SCH ×2 (10:08→17:33)
[2017-04-01] MEDS: ASPIRIN 81 MG ENTERIC TAB PO SCH (10:08)
[2017-04-01] MEDS: FOLIC ACID 1 MG TAB PO SCH (10:09)
[2017-04-01] MEDS: SERTRALINE 100 MG TAB PO SCH (10:09)
[2017-04-01] MEDS: levETIRAcetam 250MG TABLET (KEPPRA) PO SCH ×2 (10:09→20:21)
[2017-04-01] MEDS: NICOTINE 21MG/24HR 1 EA TRANSDERMAL TD SCH (10:10)
[2017-04-01] MEDS: FOSINOPRIL 10 MG TAB PO SCH (10:12)
[2017-04-01 12:00] VITALS: BP 156/86
--- NOTE | 2017-04-01 13:22 | REP ---
CHEST, ONE VIEW: HISTORY: Shortness of breath. COMPARISON: 03/30/2017. Increased density is present in the right lower lobe consistent with atelectasis or infiltrate. A right pleural effusion is present that has increased in size compared to the previous study. A small left pleural effusion is present. The heart is normal in size. The pulmonary vasculature is normal in appearance. IMPRESSION: 1. Right lower lobe atelectasis or infiltrate. 2. Right pleural effusion increased in size. 3. New small left pleural effusion. Signed by Rufino Burton MD 04/01/2017 01:24 P
[2017-04-01] MEDS: PANTOPRAZOLE 40MG INJ (PROTONIX) (C9113) IV SCH (14:12)
[2017-04-01] MEDS: SIMVASTATIN 20 MG TAB PO SCH (20:21)
[2017-04-01 22:00] VITALS: BP 160/80
[2017-04-02] MEDS: OXAZEPAM 10 MG CAP PO SCH ×2 (00:15→06:51)
[2017-04-02] MEDS: CLINDAMYCIN 600 MG in APPROPRIATE DILUENT 1 EA IV SCH ×3 (01:00→17:26)
[2017-04-02] MEDS: IPRATROPIUM 0.5MG/ALBUTEROL 2.5MG INH SOL UD 3ML (DUONEB)(J7620) NEB SCH ×4 (02:00→19:40)
[2017-04-02 06:00] VITALS: BP 147/77
[2017-04-02] MEDS: HEPARIN SOD (PORCINE) 5000 UNITS/ML VIAL SC SCH ×3 (06:55→21:27)
[2017-04-02] MEDS: ADVAIR DISKUS 250/50 INH PWD INH SCH (07:10)
[2017-04-02 08:05] LABS: MEAN CORPUSCULAR HEMOGLOBIN 35.3 pg (27.0-33.0); MEAN CORPUSCULAR HGB CONC 35.7 g/dl (32.0-36.5); MEAN CORPUSCULAR VOLUME 98.9 fl (80.0-96.0)
[2017-04-02 08:25] LABS: ANION GAP 10 MEQ/L (8-16); BLOOD UREA NITROGEN 3 MG/DL (7-18); CALCIUM LEVEL 8.5 MG/DL (8.8-10.2); CARBON DIOXIDE LEVEL 21 MEQ/L (21-32); CHLORIDE LEVEL 100 MEQ/L (98-107); CREATININE FOR GFR 0.54 MG/DL (0.55-1.02); GLOMERULAR FILTRATION RATE > 60.0 (>45); GLUCOSE, FASTING 155 MG/DL (80-110); MAGNESIUM LEVEL 1.9 MG/DL (1.8-2.4); POTASSIUM SERUM 3.7 MEQ/L (3.5-5.1); SODIUM LEVEL 131 MEQ/L (136-145)
[2017-04-02 08:31] LABS: ABG BASE EXCESS -1.3 (-2.0-2.0); ABG HCO3 21.7 MEQ/L (22.0-26.0); ABG PARTIAL PRESSURE CO2 31.9 mmHg (35.0-45.0); ABG PARTIAL PRESSURE O2 70.4 mmHg (75.0-100.0); ABG STANDARD HCO3 23.3 MEQ/L (22.0-26.0); ABG TOTAL CO2 22.7 MEQ/L (23.0-31.0)
[2017-04-02 08:34] LABS: ALBUMIN 3.2 GM/DL (3.2-5.2); ALBUMIN/GLOBULIN RATIO 1.07 (1.00-1.93); BILIRUBIN,DIRECT 0.2 MG/DL (0.0-0.2); TOTAL PROTEIN 6.2 GM/DL (6.4-8.2)
[2017-04-02 09:00] VITALS: BP 147/77
[2017-04-02] MEDS: ATENOLOL 25 MG TAB PO SCH (09:20)
[2017-04-02] MEDS: LORazepam 2 MG/ML VIAL (J2060) IV PRN (09:20)
[2017-04-02] MEDS: FOLIC ACID 1 MG TAB PO SCH (09:21)
[2017-04-02] MEDS: levETIRAcetam 250MG TABLET (KEPPRA) PO SCH ×2 (09:21→21:27)
[2017-04-02] MEDS: LACTOBACILLUS ACIDOPHILUS CAP (BACID) PO SCH ×2 (09:21→17:26)
[2017-04-02] MEDS: NICOTINE 21MG/24HR 1 EA TRANSDERMAL TD SCH (09:21)
[2017-04-02] MEDS: FOSINOPRIL 10 MG TAB PO SCH (09:21)
[2017-04-02] MEDS: SERTRALINE 100 MG TAB PO SCH (09:21)
[2017-04-02] MEDS: ASPIRIN 81 MG ENTERIC TAB PO SCH (09:21)
[2017-04-02] MEDS: MULTIVITAMINS/MINERALS THERAP 1 TAB PO SCH (09:21)
--- NOTE | 2017-04-02 12:10 | REP ---
Portable chest x-ray: Sitting AP view. History: Hypoxia. Comparison chest x-ray is from April 01, 2017. Findings: Right hemidiaphragm remains elevated and there is blunting of the pleural angles bilaterally consistent with bilateral pleural fluid. These findings are unchanged from yesterday's radiograph. Heart is mildly enlarged as before. No new infiltrate is seen. Pulmonary vasculature is slightly congested. Impression: Cardiomegaly small bilateral pleural effusions. Elevated right hemidiaphragm. Mild vascular congestion. Findings unchanged from April 01, 2017. Signed by Miguel Angel Rodas MD 04/02/2017 12:00 P
[2017-04-02] MEDS: BUDESONIDE 0.25 MG/2 ML INHALATION SUSPENSION INH SCH ×2 (13:32→19:41)
[2017-04-02 14:00] VITALS: BP 137/77
[2017-04-02] MEDS: PANTOPRAZOLE 40MG INJ (PROTONIX) (C9113) IV SCH (17:26)
--- NOTE | 2017-04-02 21:04 | IPN ---
DATE: 04/01/2017 SUBJECTIVE: The patient is seen and examined at the bedside. Chart has been reviewed. The patient continues to complain of weakness and fatigue. She does follow commands, appears to be older than her stated age. OBJECTIVE: VITAL SIGNS: Temperature 97.5, pulse 90, respiratory rate 18, blood pressure 138/75, 100% on two liters nasal cannula. GENERAL: Patient awake, alert, and oriented to person, slow to respond but follows commands. LUNGS: Diminished with coarse rhonchi. HEART: S1, S2. Sinus rhythm. ABDOMEN: Soft, nontender, nondistended. EXTREMITIES: No pitting edema. Laboratory studies, microbiology and imaging studies have been reviewed. Electroencephalogram (EEG) positive for epileptiform activity. ASSESSMENT AND PLAN: This is a 61-year-old female with history of alcohol abuse, hypertension, tobacco abuse, severe depression, was admitted due to loss of consciousness and shakiness. No prior history of seizures. Had a low-grade temperature at home, and intermittent incontinence and urine urgency. The patient had seizure. MAX cart was called. She was given intravenous (IV) Keppra 1 gram, currently it is 750 twice a day. EEG was positive for epileptiform activity. Neurologist, Dr. Daniel, has been consulted and recommended quitting smoking and alcohol. Current issues are as follows: 1. Seizure, most likely secondary to alcohol. Neurology has been consulted. Currently on oral Keppra. Minimize all sedatives an hypnotics. 2. Acute encephalopathy secondary to recent seizure activity, most likely secondary to alcohol, on Keppra. Serax as needed. MRI negative for acute cerebrovascular accident (CVA). 3. Hypertension on atenolol. 4. Small vessel ischemic disease on Zocor and aspirin. 5. Incidental finding of 2.8 mm right internal carotid artery aneurysm, patient followup and monitoring. 6. Right lower lobe pneumonia secondary to aspiration. Current on clindamycin for anaerobic coverage. 7. Depression and suicide precautions. Psychiatric consult once the patient is much more awake. 8. Deep venous thrombosis (DVT) prophylaxis with subcutaneous heparin. Encourage ambulation.
--- NOTE | 2017-04-02 21:26 | IPN ---
DATE: 04/02/2017 The patient appears to be much more restless this morning trying to climb out of bed. She appears to be more lethargic. Ammonia level is slightly elevated at 38. Currently on Keppra. No repeat episodes of seizure activity. OBJECTIVE: VITAL SIGNS: Temperature 98, pulse 103, respiratory rate 20, blood pressure 146/79, 95% on room air. GENERAL: Patient awake, alert, and oriented to her name. She is somewhat lethargic. Currently on Serax for withdrawal. LUNGS: Diminished with coarse rhonchi. HEART: S1, S2. Sinus rhythm. ABDOMEN: Soft, nontender, nondistended. EXTREMITIES: No pitting edema. Laboratory data, microbiology and imaging studies have been reviewed. ASSESSMENT AND PLAN: This is a 61-year-old female with significant history of alcohol abuse, MAX cart due to seizure activity, was given IV Keppra. Avelox for aspiration pneumonia initially, currently on IV clindamycin. Lactid acidosis due to seizure activity. IMPRESSION: 1. Acute encephalopathy due to post-ictal nature of seizure activity. Most likely secondary to alcohol withdrawal. Currently on Keppra. Serax as needed. MR is negative for acute cerebrovascular accident. Try to minimize patients sedation. 2. EEG was positive for epileptiform activity. 3. Incidental finding of 2.8 mm right internal carotid artery aneurysm, patient followup and monitoring. 4. Small vessel ischemic disease. Zocor and aspirin. 5. Hypertension on atenolol. 6. Acute cigarette use. Tobacco cessation. Has nicotine patch. 7. Lactic acidosis secondary to seizure. 8. Right lower lobe pneumonia secondary to possible aspiration during to seizure activity. Clindamycin IV currently for better anaerobic coverage. 9. Depression and suicide precautions. Consider psychiatric consult once the patient is medically stable and cleared for discharge. Physical therapy and occupational therapy.
[2017-04-02] MEDS: methylPREDNISolone 250 MG in D5W 100 ML IV SCH (21:27)
[2017-04-02] MEDS: SIMVASTATIN 20 MG TAB PO SCH (21:28)
[2017-04-02] MEDS ORDERED: FUROSEMIDE 40 MG/4 ML VIAL (J1940) IV ONE (21:30)
[2017-04-02 22:00] VITALS: BP_SYST 152
[2017-04-03] VITALS: BP_SYST 87
[2017-04-03] MEDS: CLINDAMYCIN 600 MG in APPROPRIATE DILUENT 1 EA IV SCH ×3 (00:52→16:31)
[2017-04-03] MEDS: IPRATROPIUM 0.5MG/ALBUTEROL 2.5MG INH SOL UD 3ML (DUONEB)(J7620) NEB SCH ×4 (01:36→20:00)
[2017-04-03] MEDS: HEPARIN SOD (PORCINE) 5000 UNITS/ML VIAL SC SCH ×3 (05:59→21:22)
[2017-04-03 06:00] VITALS: BP 122/89
[2017-04-03] MEDS: BUDESONIDE 0.25 MG/2 ML INHALATION SUSPENSION INH SCH ×2 (07:10→20:00)
[2017-04-03 07:14] LABS: MEAN CORPUSCULAR HEMOGLOBIN 34.8 pg (27.0-33.0); MEAN CORPUSCULAR HGB CONC 35.8 g/dl (32.0-36.5); MEAN CORPUSCULAR VOLUME 97.1 fl (80.0-96.0); RED CELL DISTRIBUTION WIDTH 12.5 % (11.5-14.5)
[2017-04-03 07:30] LABS: ANION GAP 11 MEQ/L (8-16); BLOOD UREA NITROGEN 10 MG/DL (7-18); CALCIUM LEVEL 9.1 MG/DL (8.8-10.2); CARBON DIOXIDE LEVEL 23 MEQ/L (21-32); CHLORIDE LEVEL 93 MEQ/L (98-107); GLOMERULAR FILTRATION RATE > 60.0 (>45); GLUCOSE, FASTING 147 MG/DL (80-110); MAGNESIUM LEVEL 2.2 MG/DL (1.8-2.4); POTASSIUM SERUM 3.8 MEQ/L (3.5-5.1); SODIUM LEVEL 127 MEQ/L (136-145)
[2017-04-03 08:00] VITALS: BP 122/89
[2017-04-03] MEDS ORDERED: methylPREDNISolone INJ 125 MG/2 ML VIAL (J2930) IV SCH (09:00)
[2017-04-03] MEDS: NICOTINE 21MG/24HR 1 EA TRANSDERMAL TD SCH (09:07)
[2017-04-03] MEDS: MULTIVITAMINS/MINERALS THERAP 1 TAB PO SCH (09:08)
[2017-04-03] MEDS: FOSINOPRIL 10 MG TAB PO SCH (09:08)
[2017-04-03] MEDS: levETIRAcetam 250MG TABLET (KEPPRA) PO SCH ×2 (09:08→21:22)
[2017-04-03] MEDS: ASPIRIN 81 MG ENTERIC TAB PO SCH (09:08)
[2017-04-03] MEDS: SERTRALINE 100 MG TAB PO SCH (09:08)
[2017-04-03] MEDS: ATENOLOL 25 MG TAB PO SCH (09:08)
[2017-04-03] MEDS: FOLIC ACID 1 MG TAB PO SCH (09:08)
[2017-04-03] MEDS: LACTOBACILLUS ACIDOPHILUS CAP (BACID) PO SCH ×2 (09:08→17:11)
--- NOTE | 2017-04-03 10:29 | REP ---
MR BRAIN WITHOUT CONTRAST: HISTORY: Altered mental status. CONTRAST: ProHance 8.8 mL. COMPARISON: 03/30/2017. Scattered punctate areas of increased signal intensity on T2-weighted images are present in the periventricular and subcortical white matter. This represents small vessel ischemic disease. There is no intraparenchymal hemorrhage, infarct, mass, or midline shift. The sella turcica is partially empty. There is no abnormal enhancement. The ventricular system and cortical sulci are dilated consistent with minimal volume loss. There is no extracerebral collection. The sinuses are clear. IMPRESSION: 1. Minimal small vessel ishemic disease. 2. Minimal volume loss. Signed by Rufino Burton MD 04/03/2017 10:35 A
[2017-04-03] MEDS: PANTOPRAZOLE 40MG INJ (PROTONIX) (C9113) IV SCH (14:50)
[2017-04-03 16:00] VITALS: BP_SYST 122; BP_SYST 130; BP_DIAS 85; BP_DIAS 89
[2017-04-03] MEDS: NYSTATIN 500,000 U/5 ML SUSP UDC SS SCH ×2 (16:31→21:21)
[2017-04-03 16:46] LABS: GLUCOSE CSF 83 MG/DL (40-75)
[2017-04-03 16:56] VITALS: BP 121/85
[2017-04-03 17:15] LABS: RBC CSF AUTO 1 /mm3 (0-0); WBC CSF AUTO 1 /mm3 (0-10)
[2017-04-03 17:17] LABS: APPEARANCE, CSF CLEAR (CLEAR); COLOR, CSF COLORLESS (COLORLESS); CSF TUBE# CELL CNT TUBE 1
[2017-04-03 17:18] LABS: CSF DIFF IF INDICATED? NO (NO); CSF DILUENT LOT # 6277
--- NOTE | 2017-04-03 18:52 | REP ---
FLUOROSCOPIC GUIDANCE FOR LUMBAR PUNCTURE: The procedure was performed under the direct supervision or Dr. Burton. The risks and benefits of the procedure were explained and informed consent was obtained by the health care proxy. The L4-5 interspace was localized using fluoroscopic guidance. The skin was prepped and draped in a sterile fashion. 1% Lidocaine was used as a local anesthetic. Using fluoroscopic guidance a 22 gauge spinal needle was inserted and advanced into the thecal sac. 12 mL of spinal fluid was withdrawn and sent to the lab. The patient tolerated the procedure well and there were no immediate complications. 7 seconds of fluoroscopic time was utilized for this procedure. Reviewed by MICH Whitaker 04/06/2017 04:36 PEdited and Signed by Rufino Burton MD 04/06/2017 04:43 P
[2017-04-03] MEDS: methylPREDNISolone 250 MG in D5W 100 ML IV SCH (21:22)
[2017-04-03] MEDS: SIMVASTATIN 20 MG TAB PO SCH (21:22)
[2017-04-03 22:00] VITALS: BP 130/80
--- NOTE | 2017-04-03 22:50 | IPN ---
DATE OF SERVICE: 04/03/2017 Patient seen and examined at the bedside. Chart has been reviewed. Patient appears to be much more withdrawn today, has a blanket over her face and her tongue out. Per the patient's sister, patient apparently is very embarrassed about not having her teeth on when she is seen by company. She was crying at the bedside about some issues that had happened with her and patient's sister was reassuring her to let things go. She currently denies any suicidal plans, but still has a sitter. She is awake, alert, oriented to herself. She, however, is refusing to follow commands today. She has purposeful movements. Her eyes open, but is refusing to speak and continue with a full neurologic examination. Per the sitter at the bedside, she is able to eat this morning with no difficulty. She was conversing with the nursing earlier today. I am unable to elicit any complaints this morning as she is refusing to speak to me. VITAL SIGNS: Temperature 97.1, pulse 120 sinus, respiratory rate 20, blood pressure 122/89, 96% on room air. GENERAL: Patient is awake, alert, oriented. She responds to her name, but does not answer back. She has spontaneous movements. Unable to examine her due to subjective refusal. LUNGS: Diminished with some coarse breath sounds. HEART: S1, S2, tachycardic. ABDOMEN: Soft, nontender, nondistended. EXTREMITIES: No pitting edema. LABORATORY DATA: White count 5, hemoglobin 15, hematocrit 44, platelet count 319. Sodium 127, potassium 3.8, chloride 93, bicarbonate 23, BUN 10, creatinine 0.6, glucose 147. Microbiology: Urine culture no growth. Two sets of blood cultures negative. ASSESSMENT AND PLAN: This is a 61-year-old female with history of alcohol dependence with withdrawal with active seizure activity. Max cart was called. Patient was given intravenous Keppra. Due to right-sided opacities on chest x-ray, patient is also treated for aspiration pneumonia, currently on intravenous clindamycin. CURRENT ISSUES: 1. Acute metabolic encephalopathy due to postictal nature, seizure activity, alcohol dependence with withdrawal. Currently on Keppra, Serax as needed. MRI was negative for acute CVA. Attempting to minimize patient's sedation. Electroencephalogram (EEG) was positive for epileptiform activity with incidental finding of a 2.8 mm right internal carotid artery aneurysm. She is currently managed by Dr. Tang, who has recommended a spinal tap today and high-dose steroids for the next 3-4 days. We are proceeding with paraneoplastic and immune mediated limbic encephalitis tests. Awaiting spinal tap today. The consent has been given by the patient's sister. Healthcare proxy, patient's son has gone back to [place], [place]. 2. Incidental finding of 2.8 mm right internal carotid artery aneurysm, outpatient followup. 3. Small vessel ischemic disease. Currently on Zocor and aspirin. 4. Hypertension. On atenolol. 5. Active cigarette use. Tobacco cessation counseling and nicotine patch. 6. Lactic acoidosis. Resolved. Secondary to seizure activity. 7. Right lower lobe pneumonia secondary to aspiration during seizure activity. On intravenous (IV) clindamycin for better anaerobic coverage. May change to oral. 8. Depression and suicide precautions. Psychiatric consult once the patient is medically stable and cleared for medical discharge. Continue with physical therapy and occupational therapy. 9. Deep venous thrombosis (DVT) prophylaxis with heparin subcutaneously.
[2017-04-04] MEDS: CLINDAMYCIN 600 MG in APPROPRIATE DILUENT 1 EA IV SCH ×3 (00:59→17:56)
[2017-04-04] MEDS: IPRATROPIUM 0.5MG/ALBUTEROL 2.5MG INH SOL UD 3ML (DUONEB)(J7620) NEB SCH ×4 (01:43→20:01)
[2017-04-04 02:00] VITALS: BP_SYST 97; BP_SYST 98; BP_DIAS 61; BP_DIAS 62
[2017-04-04] MEDS ORDERED: SODIUM CHLORIDE 0.9% 1000 ML IV ONE (05:15)
[2017-04-04] MEDS: HEPARIN SOD (PORCINE) 5000 UNITS/ML VIAL SC SCH ×3 (05:19→21:06)
[2017-04-04 06:00] VITALS: BP 101/63
[2017-04-04 06:02] LABS: MEAN CORPUSCULAR HEMOGLOBIN 35.3 pg (27.0-33.0); MEAN CORPUSCULAR HGB CONC 35.9 g/dl (32.0-36.5); MEAN CORPUSCULAR VOLUME 98.6 fl (80.0-96.0); RED CELL DISTRIBUTION WIDTH 12.7 % (11.5-14.5); WHITE BLOOD COUNT 4.5 K/mm3 (4.0-10.0)
[2017-04-04 06:15] LABS: ANION GAP 10 MEQ/L (8-16); CALCIUM LEVEL 8.4 MG/DL (8.8-10.2); CARBON DIOXIDE LEVEL 24 MEQ/L (21-32); CHLORIDE LEVEL 98 MEQ/L (98-107); CREATININE FOR GFR 0.52 MG/DL (0.55-1.02); GLOMERULAR FILTRATION RATE > 60.0 (>45); GLUCOSE, FASTING 138 MG/DL (80-110); MAGNESIUM LEVEL 2.4 MG/DL (1.8-2.4); SODIUM LEVEL 132 MEQ/L (136-145)
[2017-04-04 06:27] LABS: BLOOD UREA NITROGEN 17 MG/DL (7-18)
[2017-04-04] MEDS: BUDESONIDE 0.25 MG/2 ML INHALATION SUSPENSION INH SCH ×2 (07:45→20:04)
[2017-04-04 08:00] VITALS: BP 105/67
[2017-04-04] MEDS: ASPIRIN 81 MG ENTERIC TAB PO SCH (08:29)
[2017-04-04] MEDS: SENOKOT S TAB PO SCH ×2 (08:29→21:03)
[2017-04-04] MEDS: FOLIC ACID 1 MG TAB PO SCH (08:29)
[2017-04-04] MEDS: LACTOBACILLUS ACIDOPHILUS CAP (BACID) PO SCH ×2 (08:29→17:57)
[2017-04-04] MEDS: SERTRALINE 100 MG TAB PO SCH (08:29)
[2017-04-04] MEDS: NYSTATIN 500,000 U/5 ML SUSP UDC SS SCH ×3 (08:30→21:03)
[2017-04-04] MEDS: ATENOLOL 25 MG TAB PO SCH (08:51)
[2017-04-04] MEDS: FOSINOPRIL 10 MG TAB PO SCH (08:52)
[2017-04-04] MEDS: MULTIVITAMINS/MINERALS THERAP 1 TAB PO SCH (09:05)
[2017-04-04] MEDS: levETIRAcetam 250MG TABLET (KEPPRA) PO SCH ×2 (09:05→21:03)
[2017-04-04] MEDS: NICOTINE 21MG/24HR 1 EA TRANSDERMAL TD SCH (09:06)
[2017-04-04 14:00] VITALS: BP 100/58
[2017-04-04] MEDS: PANTOPRAZOLE 40MG INJ (PROTONIX) (C9113) IV SCH (14:00)
--- NOTE | 2017-04-04 14:27 | IPN ---
DATE: 04/04/2017 Patient seen and examined at the bedside. Chart has been reviewed. This morning patient is more communicative. Able to answer questions. She was aroused easily and was able to speak in full sentences. Stated that she has no pain. Stiff fatigued and weak but readily goes back to sleep. Per nursing, patient was able to sleep well last evening. VITAL SIGNS: Temperature 97.9, pulse 91, respiratory rate 18, blood pressure 101/63, 92% on room air. GENERAL: Patient is much more awake, conversing this morning but does close her eyes and goes back to sleep. She is less withdrawn. Answers questions and follows commands. Generally she is edentulous. No jugular venous distention (JVD), thyromegaly, or clinic . LUNGS: Diminished. HEART: S1, S2, sinus rhythm. ABDOMEN: Soft, nontender, nondistended. Positive bowel sounds. EXTREMITIES: No cyanosis, clubbing, or any pitting edema. LABORATORY DATA: White count 4.5, hemoglobin 14, hematocrit 39, platelet count 307. Sodium 132, potassium 4, chloride 98, bicarbonate 24, BUN 17, creatinine 0.52, glucose of 138. Ammonia level is 38. BNP was 369. Spinal tap pending. CSF culture: No organisms seen. CURRENT MEDICATIONS: - Senokot-S one tablet twice a day - nystatin - Solu-Medrol - budesonide - Keppra - clindamycin - Bacid - Ativan - Serax - Zocor - Proventil - nitroglycerine as needed - Protonix - heparin subcutaneous - DuoNeb - aspirin - Tenormin - Zoloft - folic acid - multivitamin - nicotine patch - Monopril ASSESSMENT AND PLAN: This is a 61-year-old female with a history of alcohol dependence with withdrawal and active seizure activity. Max cart was called. Patient was given intravenous (IV) Keppra. Due to right-side opacities on chest x-ray, patient is also treated for aspiration pneumonia, currently on IV clindamycin. Patient had been evaluated for other causes of acute encephalopathy. MRI of the brain was unremarkable. Shows minimal small-vessel ischemic disease. She underwent a spinal tap with negative findings on cerebrospinal fluid (CSF) and Gram statin with no organisms or cells seen. Awaiting oligoclonal bands result and anti-NMDA receptor antibodies, all of which are not available as yet. CURRENT ISSUES: 1. Acute encephalopathy due to postictal nature of seizure activity. 2. Alcohol dependence with withdrawal, currently on Keppra. Serax as needed. MRI was negative for acute cerebrovascular accident (CVA). Minimizing patient's sedation. Electroencephalogram (EEG) was positive for epileptiform activity with incidental finding of a 2.8 cm right internal carotid artery aneurysm. She is currently managed by Dr. Tang, neurology, who has recommended a spinal tap, which had undergone yesterday. Still on 3-4 days of high-dose steroids. Proceeding with paraneoplastic immune-mediated limbic encephalitis tests. Currently CSF fluid has no organisms or cells seen. Still awaiting oligoclonal bands results and anti-NMDA receptor antibody. Consent was given by the patient's sister, healthcare proxy. Patient back to [place], [place], for work. 3. Incidental findings of 2.8 mm right internal carotid artery aneurysm. Outpatient followup. 4. Right lower lobe pneumonia secondary to aspiration during seizure activity, on intravenous (IV) clindamycin for anaerobic coverage. 5. Small-vessel ischemic disease, on Zocor and aspirin. 6. Hypertension, on atenolol and fosinopril. 7. Active cigarette use. Nicotine patch. 8. Lactic acidosis, resolved, secondary to seizure activity. 9. Depression and suicidal ideation. Psychiatric consult once the patient is medically stable and cleared for medical discharge. Continue with physical therapy. 10. Deep vein thrombosis (DVT) prophylaxis with subcutaneous heparin. 11. Depression, on Zoloft. 12. Alcohol abuse and dependence, on folic acid, multivitamin.
[2017-04-04] MEDS: ACETAMINOPHEN TAB 650MG DOSE (2X325MG) PO PRN (18:03)
[2017-04-04] MEDS: SIMVASTATIN 20 MG TAB PO SCH (21:02)
[2017-04-04] MEDS: methylPREDNISolone 250 MG in D5W 100 ML IV SCH (21:03)
[2017-04-04 21:14] VITALS: BP 112/65
[2017-04-04 22:00] VITALS: BP 100/66
[2017-04-05] VITALS (8 sets, daily range): BP systolic 108–142; BP diastolic 64–74
[2017-04-05] MEDS: CLINDAMYCIN 600 MG in APPROPRIATE DILUENT 1 EA IV SCH (00:33)
[2017-04-05] MEDS: IPRATROPIUM 0.5MG/ALBUTEROL 2.5MG INH SOL UD 3ML (DUONEB)(J7620) NEB SCH ×4 (02:00→19:50)
[2017-04-05] MEDS: HEPARIN SOD (PORCINE) 5000 UNITS/ML VIAL SC SCH ×3 (05:14→22:13)
[2017-04-05 05:51] LABS: MEAN CORPUSCULAR HEMOGLOBIN 34.9 pg (27.0-33.0); MEAN CORPUSCULAR HGB CONC 34.7 g/dl (32.0-36.5); MEAN CORPUSCULAR VOLUME 100.3 fl (80.0-96.0)
[2017-04-05 05:54] LABS: ANION GAP 5 MEQ/L (8-16); BLOOD UREA NITROGEN 14 MG/DL (7-18); CALCIUM LEVEL 8.9 MG/DL (8.8-10.2); CARBON DIOXIDE LEVEL 27 MEQ/L (21-32); CHLORIDE LEVEL 103 MEQ/L (98-107); CREATININE FOR GFR 0.59 MG/DL (0.55-1.02); GLOMERULAR FILTRATION RATE > 60.0 (>45); GLUCOSE, FASTING 142 MG/DL (80-110); MAGNESIUM LEVEL 2.4 MG/DL (1.8-2.4); POTASSIUM SERUM 4.3 MEQ/L (3.5-5.1); SODIUM LEVEL 135 MEQ/L (136-145)
[2017-04-05] MEDS ORDERED: predniSONE 20 MG TAB PO ONE (09:00)
--- NOTE | 2017-04-05 09:22 | IPN ---
DATE: 04/05/2017 Patient seen and examined at the bedside. Chart has been reviewed. This morning patient was sitting, eating her breakfast. She appears to be much more awake and alert, answering questions appropriately. She complains of slight shortness of breath but states, "I'm always a slow breather." Per nursing, no other issues. Last evening, patient was given normal saline IV bolus due to low blood pressure. Atenolol and lisinopril have been placed with holding parameters. Temperature 98.4, pulse 93, respiratory rate 18, blood pressure 111/70, 91% on room air. Generally, patient is edentulous. She is much more awake, alert, oriented to person and place, answers questions appropriately and following commands appropriately. No jugular venous distention. No thyromegaly and no cervical lymphadenopathy. Oral thrush noted. Lungs are diminished with bilateral rhonchi. Heart: S1, S2, sinus rhythm. Abdomen is soft, nontender, nondistended. Positive bowel sounds. Extremities: No cyanosis, clubbing or pulmonary edema. Laboratory data: White count 5, hemoglobin 14, hematocrit 42, platelet count 307. Sodium 135, potassium 4.3, chloride 103, bicarbonate 27, BUN 14, creatinine 0.59, glucose 142. Microbiology: Reviewed. Imaging study: Chest x-ray pending. ASSESSMENT AND PLAN: This is a 61-year-old female with a history of alcohol dependence with withdrawal and presented with seizure activity. Max cart was called. She was given intravenous Keppra due to right-side opacities on x-ray. She was also treated for aspiration pneumonia, on IV clindamycin, currently transitioned to oral clindamycin. During the admission, she was worked up for encephalopathy with abnormal EEG. MRI of the brain was unremarkable. It shows minimal small-vessel ischemic disease. She underwent a spinal tap with negative findings on cerebrospinal fluid (CSF) and gram stain with no organisms or cells seen. Awaiting oligoclonal bands and anti-NMDA receptor antibodies, all of which are not available as yet. She is currently on high dose intravenous steroids. CURRENT ISSUES: 1. Acute encephalopathy due to postictal nature of alcohol withdrawal seizure due to alcohol dependence. Currently on Keppra. MRI shows no CVA. Serax as needed for alcohol withdrawal. EEG was post for epileptiform activity with an incidental finding on MRI of a 2.8 cm right internal carotid artery aneurysm. She is currently managed by Dr. Tang, neurologist on-call. Recommended a spinal tap, which she had undergone 3 days ago. Currently completed 3 days of high-dose steroids with Solu-Medrol. Per his recommendations, we are treating for her limbic encephalitis and will be placed on tapered dose of prednisone. 2. Right lower lobe pneumonia secondary to aspiration during seizure activity. IV clindamycin will be changed to oral clindamycin to complete a 7-day course. 3. Small-vessel ischemic disease. On Zocor and aspirin. 4. Hypertension with episode of low blood pressure. Atenolol and lisinopril have been with holding parameters. 5. Active cigarette use. Nicotine patch. 6. Lactic acidosis, resolved, secondary to seizure activity. 7. Depression, suicidal ideation . Psychiatric consult once the patient is medically stable and cleared for medical discharge. Continue with physical therapy. Out of bed to chair twice daily and walk with assistance at least twice daily. 8. Depression. On Zoloft. 9. Alcohol abuse and dependence. On folic acid, multivitamin. 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 On tapering dose of steroids per Dr. Tang's recommendation.
--- NOTE | 2017-04-05 09:34 | REP ---
PORTABLE CHEST, ONE VIEW: HISTORY: Shortness of breath. COMPARISON: 04/02/2017 Increased density is present in the left lower lobe consistent with atelectasis or infiltrate. Bilateral pleural effusions are present, unchanged compared to the previous study. The cardiac silhouette is enlarged. The pulmonary vasculature is normal in appearance. IMPRESSION: 1. Left lower lobe atelectasis or infiltrate. 2. Bilateral pleural effusions, unchanged compared to the previous study. Signed by Rufino Burton MD 04/05/2017 09:38 A
[2017-04-05] MEDS: BUDESONIDE 0.25 MG/2 ML INHALATION SUSPENSION INH SCH ×2 (09:43→19:50)
[2017-04-05] MEDS: NYSTATIN 500,000 U/5 ML SUSP UDC SS SCH ×3 (10:11→22:13)
[2017-04-05] MEDS: levETIRAcetam 250MG TABLET (KEPPRA) PO SCH ×2 (10:12→22:13)
[2017-04-05] MEDS: SERTRALINE 100 MG TAB PO SCH (10:12)
[2017-04-05] MEDS: ASPIRIN 81 MG ENTERIC TAB PO SCH (10:12)
[2017-04-05] MEDS: SENOKOT S TAB PO SCH ×2 (10:13→22:12)
[2017-04-05] MEDS: FOLIC ACID 1 MG TAB PO SCH (10:13)
[2017-04-05] MEDS: MULTIVITAMINS/MINERALS THERAP 1 TAB PO SCH (10:14)
[2017-04-05] MEDS: FOSINOPRIL 10 MG TAB PO SCH (10:14)
[2017-04-05] MEDS: ATENOLOL 25 MG TAB PO SCH (10:14)
[2017-04-05] MEDS: LACTOBACILLUS ACIDOPHILUS CAP (BACID) PO SCH ×2 (10:14→18:25)
[2017-04-05] MEDS: NICOTINE 21MG/24HR 1 EA TRANSDERMAL TD SCH (10:15)
[2017-04-05] MEDS: CLINDAMYCIN 150 MG CAP PO SCH ×3 (10:26→22:13)
[2017-04-05] MEDS: PANTOPRAZOLE 40MG INJ (PROTONIX) (C9113) IV SCH (13:36)
[2017-04-05] MEDS: ACETAMINOPHEN TAB 650MG DOSE (2X325MG) PO PRN ×2 (13:38→22:14)
[2017-04-05] MEDS ORDERED: SENNA 8.6 MG TAB (SENOKOT) PO PRN (18:45)
[2017-04-05] MEDS: MOM 30ML SUSPENSION UDC PO PRN (18:59)
[2017-04-05] MEDS: SIMVASTATIN 20 MG TAB PO SCH (22:12)
[2017-04-06] MEDS: IPRATROPIUM 0.5MG/ALBUTEROL 2.5MG INH SOL UD 3ML (DUONEB)(J7620) NEB SCH ×4 (03:13→20:06)
[2017-04-06 06:00] VITALS: BP 119/75
[2017-04-06] MEDS: HEPARIN SOD (PORCINE) 5000 UNITS/ML VIAL SC SCH ×3 (06:15→22:10)
[2017-04-06] MEDS: CLINDAMYCIN 150 MG CAP PO SCH ×3 (06:15→22:09)
[2017-04-06] MEDS: BUDESONIDE 0.25 MG/2 ML INHALATION SUSPENSION INH SCH ×2 (07:53→20:06)
[2017-04-06 08:00] VITALS: BP 112/64
[2017-04-06] MEDS: ATENOLOL 25 MG TAB PO SCH (09:00)
[2017-04-06] MEDS: FOSINOPRIL 10 MG TAB PO SCH (09:00)
[2017-04-06] MEDS ORDERED: predniSONE 50 MG TAB PO ONE (09:00)
[2017-04-06] MEDS: NYSTATIN 500,000 U/5 ML SUSP UDC SS SCH ×3 (09:09→22:08)
[2017-04-06] MEDS: MULTIVITAMINS/MINERALS THERAP 1 TAB PO SCH (09:09)
[2017-04-06] MEDS: ASPIRIN 81 MG ENTERIC TAB PO SCH (09:09)
[2017-04-06] MEDS: SENOKOT S TAB PO SCH ×2 (09:09→22:10)
[2017-04-06] MEDS: levETIRAcetam 250MG TABLET (KEPPRA) PO SCH ×2 (09:10→22:09)
[2017-04-06] MEDS: LACTOBACILLUS ACIDOPHILUS CAP (BACID) PO SCH ×2 (09:10→17:07)
[2017-04-06] MEDS: SERTRALINE 100 MG TAB PO SCH (09:10)
[2017-04-06] MEDS: NICOTINE 21MG/24HR 1 EA TRANSDERMAL TD SCH (09:11)
[2017-04-06] MEDS: FOLIC ACID 1 MG TAB PO SCH (09:36)
[2017-04-06 10:10] LABS: CSF GROUP B STREP NEGATIVE (NEGATIVE); CSF H. INFLUENZA NEGATIVE (NEGATIVE); CSF N MENINGITIDIS ACYW135 NEGATIVE (NEGATIVE); CSF STREP PNUEMO NEGATIVE (NEGATIVE)
[2017-04-06] MEDS: PANTOPRAZOLE 40MG INJ (PROTONIX) (C9113) IV SCH (14:09)
[2017-04-06] MEDS: ACETAMINOPHEN TAB 650MG DOSE (2X325MG) PO PRN ×2 (14:11→22:10)
[2017-04-06] MEDS: MOM 30ML SUSPENSION UDC PO PRN (14:11)
[2017-04-06 16:00] VITALS: BP 125/77
[2017-04-06 20:46] LABS: MEAN CORPUSCULAR HEMOGLOBIN 34.9 pg (27.0-33.0); MEAN CORPUSCULAR HGB CONC 34.8 g/dl (32.0-36.5); MEAN CORPUSCULAR VOLUME 100.2 fl (80.0-96.0); RED CELL DISTRIBUTION WIDTH 12.9 % (11.5-14.5); WHITE BLOOD COUNT 7.4 K/mm3 (4.0-10.0)
[2017-04-06 21:07] LABS: ALBUMIN 3.7 GM/DL (3.2-5.2); ALBUMIN/GLOBULIN RATIO 1.42 (1.00-1.93); ALKALINE PHOSPHATASE 186 U/L (45-117); ALT/SGPT 14 U/L (12-78); ANION GAP 7 MEQ/L (8-16); AST/SGOT 12 U/L (15-37); BILIRUBIN,TOTAL 0.6 MG/DL (0.2-1.0); BLOOD UREA NITROGEN 15 MG/DL (7-18); CALCIUM LEVEL 8.9 MG/DL (8.8-10.2); CARBON DIOXIDE LEVEL 27 MEQ/L (21-32); CHLORIDE LEVEL 103 MEQ/L (98-107); CREATININE FOR GFR 0.52 MG/DL (0.55-1.02); GLOMERULAR FILTRATION RATE > 60.0 (>45); GLUCOSE, FASTING 98 MG/DL (80-110); POTASSIUM SERUM 4.4 MEQ/L (3.5-5.1); SODIUM LEVEL 137 MEQ/L (136-145); TOTAL PROTEIN 6.3 GM/DL (6.4-8.2)
--- NOTE | 2017-04-06 21:53 | IPN ---
DATE: 04/06/2017 The patient is seen and examined at the bedside. Chart has been reviewed this morning. The patient is much more responsive, communicates well and follows commands. She is sitting in bed eating her breakfast with some assistance, afebrile. No complaints of chest pain, pressure, tightness, nausea, vomiting, diarrhea, abdominal pain. Denies any restlessness or agitation. Temperature 98, pulse 100, sinus rhythm, respiratory rate 20, blood pressure 119/75, 95% on room air. General: Awake, alert, oriented to person and place, answers questions appropriately. HEENT: Anicteric sclerae. No jaundice. Pupils are round, reactive. Positive oral thrush. Neck is supple. Full range of motion. Lungs: Diminished but clear to auscultation. No wheezing, rales or rhonchi. Heart: S1, S2, sinus rhythm with sinus tachycardia. Abdomen: Soft, nontender, nondistended. Positive bowel sounds. Extremities: No cyanosis, clubbing or pitting edema. LABORATORY DATA: CBC, metabolic panel, microbiology, imaging studies have been reviewed. ASSESSMENT AND PLAN: A 61-year-old female with a history of alcohol dependence with withdrawal and presented with seizure activity. Max cart was called. She was given IV Keppra due to right-sided opacities on x-ray. She was also treated for aspiration pneumonia initially with intravenous clindamycin due to altered mental status, currently transitioned to oral clindamycin. During this admission, workup for encephalopathy included MRI of the brain which was unremarkable, showed minimal small vessel ischemic disease with no acute cerebrovascular accident. EEG which was abnormal, showing epileptiform spikes. She underwent spinal tap with negative findings on cerebrospinal fluid (CSF) and gram stain with no organisms or cells seen. Currently still awaiting oligoclonal bands and anti-MMDA receptor antibodies, which are still pending. The patient did receive 3 days of intravenous Solu-Medrol for limbic encephalitis. CURRENT ISSUES: 1. 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 Currently awake, alert, answering questions and following commands, almost back to her baseline. Defer to Dr. Tang, Neurology, for further recommendations. Currently, on a 1-week taper of oral prednisone. 2. Acute metabolic toxic encephalopathy due to postictal nature of alcohol withdrawal seizure from alcohol dependence as well as possible limbic encephalitis. Currently awaiting a full workup, which is still pending, improving currently. She underwent a spinal tap 4 days ago, completed 3 days of high-dose steroids with Solu-Medrol. Per Neurology recommendations, continue on 1-week of prednisone taper dose. 3. Right lower lobe pneumonia secondary to aspiration during seizure activity. The patient was initially placed on Avelox but transitioned to IV clindamycin for better anaerobic coverage. As the patient's mentation improved, she was changed to oral clindamycin. 4. Small vessel ischemic disease on MRI of the brain. On Zocor and aspirin. 5. Hypertension. Patient is on atenolol and lisinopril with holding parameters. Currently tachycardic. May resume home dose of atenolol. 6. Active cigarette use. Nicotine patch. 7. Lactic acidosis secondary to seizure activity, resolved. 8. Depression with suicidal ideation. Psychiatric consult once the patient is medically stable and cleared for medical discharge. Continue with physical therapy, out of bed twice a day and walk with assistance at least twice daily. On Zoloft. 9. Alcohol abuse and dependence. On folic acid, multivitamin. MTDD
[2017-04-06 22:00] VITALS: BP 124/78
[2017-04-06] MEDS: SIMVASTATIN 20 MG TAB PO SCH (22:09)
[2017-04-07] MEDS: IPRATROPIUM 0.5MG/ALBUTEROL 2.5MG INH SOL UD 3ML (DUONEB)(J7620) NEB SCH ×4 (02:00→18:47)
[2017-04-07 06:00] VITALS: BP 144/83
[2017-04-07] MEDS: CLINDAMYCIN 150 MG CAP PO SCH (06:00)
[2017-04-07] MEDS: MOM 30ML SUSPENSION UDC PO PRN (06:00)
[2017-04-07] MEDS: HEPARIN SOD (PORCINE) 5000 UNITS/ML VIAL SC SCH ×3 (06:00→20:20)
[2017-04-07 06:03] LABS: MEAN CORPUSCULAR HEMOGLOBIN 35.2 pg (27.0-33.0); MEAN CORPUSCULAR HGB CONC 35.1 g/dl (32.0-36.5); MEAN CORPUSCULAR VOLUME 100.3 fl (80.0-96.0); RED CELL DISTRIBUTION WIDTH 12.9 % (11.5-14.5); WHITE BLOOD COUNT 6.9 K/mm3 (4.0-10.0)
[2017-04-07 06:20] LABS: ALBUMIN 3.5 GM/DL (3.2-5.2); ANION GAP 6 MEQ/L (8-16); BLOOD UREA NITROGEN 13 MG/DL (7-18); CALCIUM LEVEL 9.1 MG/DL (8.8-10.2); CARBON DIOXIDE LEVEL 28 MEQ/L (21-32); CHLORIDE LEVEL 104 MEQ/L (98-107); CREATININE FOR GFR 0.61 MG/DL (0.55-1.02); GLOMERULAR FILTRATION RATE > 60.0 (>45); GLUCOSE, FASTING 96 MG/DL (80-110); PHOSPHORUS LEVEL 2.1 MG/DL (2.5-4.9); POTASSIUM SERUM 4.1 MEQ/L (3.5-5.1); SODIUM LEVEL 138 MEQ/L (136-145)
[2017-04-07] MEDS: BUDESONIDE 0.25 MG/2 ML INHALATION SUSPENSION INH SCH ×2 (07:12→18:47)
[2017-04-07 08:00] VITALS: BP 144/83
[2017-04-07] MEDS ORDERED: predniSONE 20 MG TAB PO ONE (09:00)
[2017-04-07] MEDS: SERTRALINE 100 MG TAB PO SCH (09:16)
[2017-04-07] MEDS: MULTIVITAMINS/MINERALS THERAP 1 TAB PO SCH (09:17)
[2017-04-07] MEDS: LACTOBACILLUS ACIDOPHILUS CAP (BACID) PO SCH ×2 (09:17→16:53)
[2017-04-07] MEDS: ASPIRIN 81 MG ENTERIC TAB PO SCH (09:17)
[2017-04-07] MEDS: SENOKOT S TAB PO SCH ×2 (09:17→20:20)
[2017-04-07] MEDS: levETIRAcetam 250MG TABLET (KEPPRA) PO SCH ×2 (09:17→20:20)
[2017-04-07] MEDS: FOSINOPRIL 10 MG TAB PO SCH (09:18)
[2017-04-07] MEDS: FOLIC ACID 1 MG TAB PO SCH (09:18)
[2017-04-07] MEDS: NYSTATIN 500,000 U/5 ML SUSP UDC SS SCH ×3 (09:18→20:19)
[2017-04-07] MEDS: NICOTINE 21MG/24HR 1 EA TRANSDERMAL TD SCH (09:19)
[2017-04-07] MEDS: ATENOLOL 25 MG TAB PO SCH (09:20)
[2017-04-07] MEDS: ACETAMINOPHEN TAB 650MG DOSE (2X325MG) PO PRN (10:55)
[2017-04-07 14:00] VITALS: BP 131/73
[2017-04-07] MEDS: CYANOCOBALAMIN 500 MCG TAB PO SCH ×2 (14:41→20:20)
--- NOTE | 2017-04-07 15:15 | IPN ---
DATE OF VISIT: 04/07/2017 SUBJECTIVE: Patient seen and examined in the range of motion today. Patient is alert, awake, able to answer all questions. According to nursing staff, patient' s mentation continues to show significant improvement. I had a chance to talk to patient's sister, who will be patient's caregiver once patient is discharged. According to the sister, patient is fully functional and able to take care of herself at the baseline. Yesterday, when the sister visited the patient, patient still had waxing and waning of the mental status especially when patient is tired. Patient only able to retain short-term memory, and patient started having increased confusion. Patient starts having confusion when patient is extremely tired. According to the sister, when patient was in the emergency room, patient had a comment with regard to hurting herself, but the sister does not feel that that is patient's baseline. OBJECTIVE: VITAL SIGNS: Temperature 98.8, pulse is 98, respirations 16, blood pressure is 144/83, pulse oximetry 94% on room air. GENERAL: No sign of acute distress. Alert and oriented times three, able to say the name of the hospital, the year, and the person. Able to follow commands. HEENT: Normocephalic, atraumatic. Extraocular motor grossly intact. CARDIOVASCULAR: Positive S1, S2, regular rate. LUNGS: Clear to auscultation bilaterally. diminished decreased breath sounds. ABDOMEN: Soft, nontender, nondistended. Bowel sounds present. No rebound or guarding. EXTREMITIES: No edema. No cyanosis. LABORATORY DATA: WBC 6.9, hemoglobin 13.9, hematocrit 39.7, platelet count 365. Sodium is 138, potassium 4.1, chloride 104, carbon dioxide 28, BUN is 13, creatinine is 0.61, GFR greater than 60, fasting glucose 96, calcium is 9.1, phosphorus 2.1, albumin 3.5. ASSESSMENT/PLAN: 1. Acute metabolic encephalopathy, likely secondary to alcohol withdrawal seizure and possible limbic encephalitis. Patient has been started on tapering dose of steroids. Patient's mentation has been improving, especially for the past two days. Currently, prednisone is on a tapering dose. Patient has a history of receiving IV Solu-Medrol. Neurologist has been consulted. We appreciate their assistance. 2. 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 Patient had a lumbar puncture performed, all came back negative. We are still awaiting the oligoclonal band results. CSF culture is negative. 3. Aspiration pneumonia during the seizure activity. Patient has been taking IV clindamycin for seven days. Patient has normal white count. Patient's vital signs are stable. Will discontinue antibiotics. 4. Small vessel ischemic disease seen on MRI. On Zocor and aspirin. 5. Hypertension. Patient is on lisinopril and atenolol. Blood pressure in satisfactory range. 6. Depression with suicidal ideation. I have consulted psychiatrist, Dr. Arndt, for suicidal ideation evaluation. Currently, patient has one-to-one sitters. Currently, patient is on Zoloft for depression. 7. Alcohol abuse and dependence. Patient is on thiamine, folic acid, and multivitamin. Patient has Serax as needed. Patient also has IV Ativan as needed. 8. Generalized tonic-clonic seizures. Neurology has been consulted. Patient is on Keppra. Patient is on seizure precaution. 9. History of chronic obstructive pulmonary disease (COPD). Currently, patient is compensated. No sign of exacerbation. Patient is on breathing treatments. 10. Deep venous thrombosis (DVT) prophylaxis. Patient on heparin. MTDD
[2017-04-07] MEDS ORDERED: traMADol 50 MG TAB PO PRN (20:00)
[2017-04-07] MEDS: SIMVASTATIN 20 MG TAB PO SCH (20:20)
[2017-04-07 22:00] VITALS: BP 136/76
--- NOTE | 2017-04-07 22:28 | CR ---
DATE OF CONSULTATION: 04/07/2017 CHIEF COMPLAINT: Feels better. SUBJECTIVE: She is 61 years old. She is . She lives with her sister, Evelina, who was at the bedside, and I spoke with the patient's sister and the patient together, but after interviewing the patient alone, with her permission. I have been asked to see this patient and make an assessment regarding her condition, as apparently she had, soon after admission, expressed to some staff that she thought of suicide. Chart is reviewed. The patient is interviewed as well. As stated previously, the history is also obtained from the patient and her sister. The patient was brought in as she was found to be quite confused, by her sister. Apparently, the patient had been confused for a few days prior to hospitalization, was acting in a bizarre manner and apparently, her statements were not making sense, were not in context of what was being discussed and she kept arranging things around the house in a haphazard manner. She finally then had a seizure, was brought to the hospital and had another seizure, witnessed. Was seen by the hospitalist. Neurology has seen the patient as well and have concluded that she has had tonic-clonic seizures. An electroencephalogram (EEG) has been positive as well. The patient does not remember much of this, but does suggest that she had been drinking excessively. Says she does that regularly, daily, and has been doing that for the last few years. She suggests that she drinks for a considerable portion of the day, until she passes out. She also said she and her sister had gone to see a psychic, as there was some promise that she could come in touch with her and son. She says her son was 16 and killed himself many years ago and the did the same about three years later. She says they both shot themselves. Says that was devastating for her and she has been dealing with that essentially since then. Says when she had gone to the psychic, could not make contact with son and and she felt disappointed, and she feels she may have increased her drinking after that. It should be noted, by the sister, they had spoken in terms of going to visit a psychic, but they had not, in fact, done so and someone else, someone called Luana, had in fact gone. Sister also indicated the patient's son had killed himself, but that the had of cancer. This was about 15 years ago. The sister also indicated the patient drinks usually in the evenings, sometimes until late at night or early on to the morning. She feels she has been drinking excessively for several years. Sister had noted the patient becoming confused about a few days prior to admission and when the confusion increased and behavior became more bizarre in terms of shuffling and arranging thinks in a haphazard manner, the sister called the ambulance when she found she had a seizure and witnessed another one. She felt depressed, but denies she has felt suicidal. Sister says she has never known the patient to express any thoughts of wanting to take her life, nor had she had any concerns that she might. Has no concerns regarding her sister's ability to maintain her safety at present. PAST PSYCHIATRIC HISTORY: None formally. She has been on antidepressants for a while, takes sertraline, and she has been doing that while drinking, nor has she had suicidal intents nor any psychiatric hospitalizations. SUBSTANCE ABUSE HISTORY: Has been drinking heavily regularly for the last few years, possibly longer. Patient says had started drinking heavily soon after the of her and son. MEDICAL HISTORY: Has a history of: 1. Coronary artery disease. 2. Hypertension. 3. Chronic obstructive pulmonary disease (COPD). 4. Dyslipidemia. 5. Carpal tunnel surgery. 6. Coronary artery angioplasty. MEDICATIONS: Please see the list prior to hospitalization and included: - Zoloft 100 mg daily - simvastatin - atenolol - aspirin - albuterol - Ellipta SOCIAL HISTORY: Says was essentially raised in [place], [place] and that she has a few siblings. Says she and her were together for many years and that he 15 years ago. She indicated he had shot himself. Patient's sister indicates otherwise, he of cancer. The patient's son killed himself by gunshot. He was 16 (many years ago). The patient has been living with her sister for the last few years here in [place]. MENTAL STATUS EXAMINATION: She is sitting up in bed, appears quite thin, but neat. Cooperative. No agitation. No psychomotor retardation. Answers questions mostly logically, at times they are not in context to what is asked. Affect is restricted but reactive. Denies any suicidal thoughts or intents. No homicidal ideas or intents. Currently no evidence of psychosis. She is alert, able to maintain and shift attention adequately. She is oriented to self, eventually to place. On a number of occasions she kept suggesting this was [facility], but was then reoriented. She was not fully oriented to the date, she knew it was March 2017, knew the day of the week, but thought it was the 8th and then thought it was the . Can spell the word house forwards, but not backwards. Could not do three digit backward spans. Can recall 2 out of 3 objects after five minutes, but after several attempts. Intellect average. Judgment is good. Insight is fair. ASSESSMENT: 1. Delirium, multifactorial. 2. Alcohol use disorder. 3. 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 The patient has been depressed, has been drinking regularly, and has had confusions, delirium, which has probably been multifactorial and possibly exacerbated further by alcohol withdrawal. She, per history, appears to have been delirious even prior to stopping drinking, however. She may well have had a withdrawal seizure as well. Currently, there is no fluctuation of consciousness, but she does tend to display some cognitive deficits in terms of short term memory and narrative of events, with a tendency to mix them up. She denies any suicidal thoughts or intents at present. There is no history of psychosis. RECOMMENDATIONS: Optimize current care. When patient is medically stable, I would suggest referring her to substance abuse, addictions treatment as an outpatient locally. I would also suggest referring her to counseling therapy and psychiatry upon discharge. Meanwhile, suggest continuing with sertraline at 100 mg daily. My assessment and recommendations are discussed with her and her sister together and their questions are answered. Thank you for the consult. If you have any questions, please call. The assessment took 50 minutes.
[2017-04-08 00:07] LABS: N-METHYL-D-ASPARTATE RECPT IGG <1:10 (<1:10)
[2017-04-08] MEDS: IPRATROPIUM 0.5MG/ALBUTEROL 2.5MG INH SOL UD 3ML (DUONEB)(J7620) NEB SCH ×4 (02:00→19:51)
[2017-04-08 06:00] VITALS: BP 152/88
[2017-04-08 06:15] VITALS: BP 152/88
[2017-04-08 06:22] LABS: ALBUMIN 3.3 GM/DL (3.2-5.2); ANION GAP 8 MEQ/L (8-16); BLOOD UREA NITROGEN 10 MG/DL (7-18); CALCIUM LEVEL 8.7 MG/DL (8.8-10.2); CARBON DIOXIDE LEVEL 26 MEQ/L (21-32); CHLORIDE LEVEL 103 MEQ/L (98-107); CREATININE FOR GFR 0.55 MG/DL (0.55-1.02); GLOMERULAR FILTRATION RATE > 60.0 (>45); GLUCOSE, FASTING 89 MG/DL (80-110); PHOSPHORUS LEVEL 2.5 MG/DL (2.5-4.9); SODIUM LEVEL 137 MEQ/L (136-145)
[2017-04-08] MEDS: HEPARIN SOD (PORCINE) 5000 UNITS/ML VIAL SC SCH ×3 (06:31→20:24)
[2017-04-08 06:32] LABS: WHITE BLOOD COUNT 6.8 K/mm3 (4.0-10.0)
[2017-04-08 06:33] LABS: MEAN CORPUSCULAR HEMOGLOBIN 35.2 pg (27.0-33.0); MEAN CORPUSCULAR HGB CONC 34.9 g/dl (32.0-36.5); MEAN CORPUSCULAR VOLUME 100.8 fl (80.0-96.0)
--- NOTE | 2017-04-08 06:49 | REP ---
Left ribs three views: Comparison is the portable chest dated 04/05 2017. I suspect a nondisplaced fracture at the anterior tip of the left eighth rib. This should be correlated with clinical point tenderness. No other rib fractures are identified. There is no left pneumothorax, hemothorax or pulmonary contusion. Cardiac size appears normal. There is a coronary artery endovascular stent, not definitely present on the comparison study. Signed by Lucas Ellis MD 04/08/2017 06:41 A
[2017-04-08 08:00] VITALS: BP 146/83
[2017-04-08] MEDS: MULTIVITAMINS/MINERALS THERAP 1 TAB PO SCH (08:32)
[2017-04-08] MEDS: levETIRAcetam 250MG TABLET (KEPPRA) PO SCH ×2 (08:32→20:24)
[2017-04-08] MEDS: SENOKOT S TAB PO SCH ×2 (08:32→20:24)
[2017-04-08] MEDS: NICOTINE 21MG/24HR 1 EA TRANSDERMAL TD SCH (08:32)
[2017-04-08] MEDS: NYSTATIN 500,000 U/5 ML SUSP UDC SS SCH ×3 (08:32→20:24)
[2017-04-08] MEDS: FOLIC ACID 1 MG TAB PO SCH (08:33)
[2017-04-08] MEDS: LACTOBACILLUS ACIDOPHILUS CAP (BACID) PO SCH ×2 (08:33→17:16)
[2017-04-08] MEDS: CYANOCOBALAMIN 500 MCG TAB PO SCH ×2 (08:33→20:25)
[2017-04-08] MEDS: FOSINOPRIL 10 MG TAB PO SCH (08:35)
[2017-04-08] MEDS: ATENOLOL 25 MG TAB PO SCH (08:35)
[2017-04-08] MEDS: SERTRALINE 100 MG TAB PO SCH (08:35)
[2017-04-08] MEDS: ASPIRIN 81 MG ENTERIC TAB PO SCH (08:36)
[2017-04-08] MEDS ORDERED: predniSONE 10 MG TAB PO ONE (09:00)
[2017-04-08] MEDS: BUDESONIDE 0.25 MG/2 ML INHALATION SUSPENSION INH SCH ×2 (09:14→19:51)
[2017-04-08 14:00] VITALS: BP 120/75
[2017-04-08 14:15] LABS: ANTI HU ANTIBODY <1:10 Titer (.)
--- NOTE | 2017-04-08 14:58 | IPN ---
DATE: 04/08/2017 SUBJECTIVE: Patient seen and examined in the room today. Patient's mentation continues to improve. Patient now knows that this is 2016 and instead of 1917. Patient knows that this is [facility] and the president is Jean Claude Fitzgerald. I also had a chance to talk to the patient's sister who was in the patient's room on a daily basis. She also stated her mental status has been improving. Patient still has mild left lateral rib discomfort. I discussed the refractory findings from the chest x-ray with the patient. Patient has a history of fall when the patient was under alcohol intoxication and therefore the information was provided by the patient's sister and then the patient was not aware of that fall. OBJECTIVE: VITAL SIGNS: Temperature 97.5, pulse is 93, respirations 17, blood pressure is 152/88, pulse oximetry 92% in room air. GENERAL: No sign of acute distress. Alert and oriented times three. HEENT: Normocephalic, atraumatic. Extraocular motor grossly intact. CARDIOVASCULAR: Positive S1, S2, regular rate. LUNGS: Clear to auscultation bilaterally. ABDOMEN: Soft, nontender, nondistended. Bowel sounds present. No rebound or guarding. EXTREMITIES: No edema. No signs of cyanosis. LABORATORY DATA: WBC 6.8, hemoglobin 13.7, hematocrit 39.2, platelet count 284. Sodium is 137, potassium 4, chloride 103, carbon dioxide 26, BUN is 10, creatinine is 0.55, GFR greater than 60, fasting glucose 89, calcium is 8.7, phosphorus 2.5, albumin 3.3. ASSESSMENT/PLAN: 1. Acute metabolic encephalopathy, most likely secondary to alcohol withdrawal seizure and possible limbic encephalopathy. Patient had a high dose of IV Solu-Medrol. Currently, patient is on a tapering dose of by mouth prednisone. Patient's mental status continued to improve. The patient's mentation is approaching her baseline. Appreciated neurology's assistance. 2. 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 Patient had a lumbar puncture performed. We are still waiting for the fungal culture to come back and there is oligoclonal band results pending. The rest of the cultures, such as gram stain and fluid CSF fluid analysis have been negative. 3. Alcohol abuse with seizures. Patient has been placed on Serax as needed and Ativan as needed. The patient is on thiamine, folic acid and multivitamin. Patient is recommended to continue with drug abuse rehab program once discharged. 4. Depression with suicidal ideation. The patient's psychiatrist, Dr. Arndt, has seen the patient. Patient continued on sertraline 100 mg by mouth daily and is recommended that the patient establish with a psychiatrist in the outpatient setting. Will discontinue the sitter. 5. Generalized tonic-clonic seizures. Neurology was consulted and patient was placed on Keppra with no recurrence. Patient is on seizure precautions. 6. History of chronic obstructive pulmonary disease (COPD). Currently compensated. No sign of exacerbation. Patient is on breathing treatments. 7. Hypertension. On lisinopril and atenolol. Blood pressure is stable. Small vessel ischemic disease seen on MRI on Zocor and aspirin. 8. Possible aspiration pneumonia during the seizure activity. Patient finished course of clindamycin. Currently normal white count. Does not require oxygen support. Vital signs are stable. 9. Deep venous thrombosis (DVT) prophylaxis, on heparin.
[2017-04-08 16:00] VITALS: BP 146/83
[2017-04-08] MEDS: SIMVASTATIN 20 MG TAB PO SCH (20:24)
[2017-04-08 22:00] VITALS: BP 138/84
[2017-04-09 00:26] VITALS: BP 150/93
[2017-04-09] MEDS: IPRATROPIUM 0.5MG/ALBUTEROL 2.5MG INH SOL UD 3ML (DUONEB)(J7620) NEB SCH ×2 (01:16→07:46)
[2017-04-09 05:07] LABS: MEAN CORPUSCULAR HEMOGLOBIN 35.4 pg (27.0-33.0); MEAN CORPUSCULAR HGB CONC 35.5 g/dl (32.0-36.5); MEAN CORPUSCULAR VOLUME 99.7 fl (80.0-96.0); RED CELL DISTRIBUTION WIDTH 12.9 % (11.5-14.5); WHITE BLOOD COUNT 7.9 K/mm3 (4.0-10.0)
[2017-04-09 05:31] LABS: ALBUMIN 3.5 GM/DL (3.2-5.2); ANION GAP 7 MEQ/L (8-16); BLOOD UREA NITROGEN 10 MG/DL (7-18); CALCIUM LEVEL 9.1 MG/DL (8.8-10.2); CARBON DIOXIDE LEVEL 27 MEQ/L (21-32); CHLORIDE LEVEL 105 MEQ/L (98-107); GLOMERULAR FILTRATION RATE > 60.0 (>45); GLUCOSE, FASTING 93 MG/DL (80-110); PHOSPHORUS LEVEL 2.7 MG/DL (2.5-4.9); POTASSIUM SERUM 3.6 MEQ/L (3.5-5.1); SODIUM LEVEL 139 MEQ/L (136-145)
[2017-04-09 06:00] VITALS: BP 149/84
[2017-04-09] MEDS: HEPARIN SOD (PORCINE) 5000 UNITS/ML VIAL SC SCH (06:00)
[2017-04-09] MEDS: BUDESONIDE 0.25 MG/2 ML INHALATION SUSPENSION INH SCH (07:46)
[2017-04-09 08:00] VITALS: BP 150/93
[2017-04-09] MEDS: SENOKOT S TAB PO SCH (08:35)
[2017-04-09] MEDS: ASPIRIN 81 MG ENTERIC TAB PO SCH (08:35)
[2017-04-09] MEDS: MULTIVITAMINS/MINERALS THERAP 1 TAB PO SCH (08:35)
[2017-04-09] MEDS: levETIRAcetam 250MG TABLET (KEPPRA) PO SCH (08:35)
[2017-04-09] MEDS: NYSTATIN 500,000 U/5 ML SUSP UDC SS SCH (08:36)
[2017-04-09] MEDS: NICOTINE 21MG/24HR 1 EA TRANSDERMAL TD SCH (08:36)
[2017-04-09] MEDS: FOLIC ACID 1 MG TAB PO SCH (08:36)
[2017-04-09] MEDS: SERTRALINE 100 MG TAB PO SCH (08:36)
[2017-04-09] MEDS: CYANOCOBALAMIN 500 MCG TAB PO SCH (08:36)
[2017-04-09] MEDS: LACTOBACILLUS ACIDOPHILUS CAP (BACID) PO SCH (08:36)
[2017-04-09] MEDS: FOSINOPRIL 10 MG TAB PO SCH (08:38)
[2017-04-09] MEDS: ATENOLOL 25 MG TAB PO SCH (08:38)
[2017-04-09] MEDS: ACETAMINOPHEN TAB 650MG DOSE (2X325MG) PO PRN (08:43)
[2017-04-09] MEDS ORDERED: predniSONE 20 MG TAB PO ONE (09:00)
[2017-04-09 09:29] LABS: ANTI-MaTa ABY SEE SEPARATE REPORT
[2017-04-09] MEDS ORDERED: NICO21PAT TD (10:25)
[2017-04-09] MEDS ORDERED: VITA500T53 PO (10:25)
[2017-04-09] MEDS ORDERED: KEPP250T5 PO (10:25)
[2017-04-09] MEDS ORDERED: VITMTA PO (10:25)
[2017-04-09] MEDS ORDERED: PRED10TA2 PO (10:25)
[2017-04-09] MEDS ORDERED: FOLI1TAB4 PO (10:25)
[2017-04-09] MEDS ORDERED: ATENOLOL 25 MG TAB PO ONE (10:30)
[2017-04-09 10:42] VITALS: BP 134/86
--- NOTE | 2017-04-09 21:07 | DSES ---
DATE OF ADMISSION: March 29, 2017 DATE OF DISCHARGE: April 09, 2017 PRIMARY CARE PROVIDER: Dr. Melara CONSULTANTS: Neurologist: Dr. Tang Psychiatrist: Dr. Arndt PROCEDURES: None COMPLICATIONS: None. DISCHARGE DIAGNOSES: 1. Acute metabolic encephalopathy. 2. Alcohol abuse with seizures. 3. 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 4. Depression. 5. Chronic obstructive pulmonary disease (COPD). 6. Hypertension. 7. Suspected nondisplaced fracture of the anterior tip of the left 8th rib. HOSPITALIZATION COURSE: The patient is a 61-year-old female who presented to [facility] on March 29, 2017 with altered mental status changes. The patient was found to have seizure-like activity with confusion. The patient was placed on seizure precautions, Serax protocol and Ativan protocol. The patient is started on empiric antibiotics for suspected aspiration during seizure activities. Neurologist is consulted. MRI was performed and came back negative for acute cerebrovascular accident (CVA). EEG was performed and is positive for epileptiform activities. The patient does have very sudden recovery of her mental status and spinal tap was recommended by neurologist and was performed on April 03, 2017 and there is a suspicion for possible limbic encephalopathy. The patient is started on empiric prednisone. A few days with prednisone usage the patient showed significant improvement on her mental status. The patient's Serax was switched to tapering dose. The patient continued to work with physical therapy. On April 07, 2017, psychiatrist, Dr. Arndt was consulted due to patient had suicidal comments while patient had altered mental status change and after evaluation, the sitter was discontinued. On April 09, 2017, the patient was stable for discharge with discharge recommendation to follow with her primary care provider in 7 to 10 days. The patient is recommended to followup with the neurologist in 3 to 4 weeks after discharge and the patient recommended to follow with substance abuse/addiction program. The patient instructed not to consume any type of alcoholic beverages in the future. VITAL SIGNS: Temperature 97.5, pulse is 101, respirations 17, blood pressure is 149/84, pulse oximetry 94% on room air. LABORATORY DATA: WBC 7.9, hemoglobin 14.7, hematocrit 41.5, platelet count is 320. Sodium 139, potassium 3.6, chloride 105, carbon dioxide 27, BUN 10, creatinine 0.6, GFR greater than 60, fasting glucose 93, calcium 9.1, phosphorous 2.87, albumin is 3.5. Immunology study: Anti-Hu is negative. Anti-NMDA receptor antibody level is negative. CSF fluid analysis is negative. Oligoclonal band level pending. Sample was sent out. Blood cultures negative after 5 days. A sample from March 30, 2017. Urine cultures on March 31, 2017 is negative. Gram stain of CHF fluid showed no organism seen. Fungal culture for CSF pending. CSF Lorie ink for Cryptococcus result show no Cryptococcus identified. IMAGING STUDIES: CT of the head without contrast on March 29, [address] head CT. Chest x-ray on March 29, 2017 showed active versus chronic bibasilar fibroatelectatic changes. MRI of the brain without contrast on March 30, 2917 showed minimal small vessel ischemic disease. Minimal volume loss. MRA of the carotids without followed by with contrast on March 30, 2017 showed no carotid stenosis. 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 Chest x-ray on March 30, 2017 showed right lower lobe atelectasis or infiltrate. Chest x-ray on April 02, 2017 showed cardiomegaly. Small bilateral pleural effusions. Elevated right hemidiaphragm. MRI of the brain without followed by with contrast on April 03, 2917 showed minimal small vessel ischemic disease. Minimal volume loss. Chest x-ray on April 05, 2017 showed left lower lobe atelectasis or infiltrate. Bilateral pleural effusion, unchanged. Left rib x-ray on April 07, 2917 showed suspected nondisplaced fracture at the anterior tip of the left 8th rib. DISCHARGE MEDICATION: - vitamin B12 1000 mcg by mouth twice a day - folic acid 1 mg by mouth every day - Keppra 750 mg by mouth twice a day - multivitamin 1 tablet by mouth every day - nicotine patch transdermal every day - prednisone 10 mg by mouth for 2 days - Ventolin 2 puffs inhalation every 4 hours as needed - aspirin 81 mg by mouth every day - atenolol 25 mg by mouth every day - Lisinopril 5 mg by mouth daily - Ellipta 62.5 mcg inhalation daily - nitroglycerin 0.4 mg sublingual every 5 minutes as needed for chest pain - Advair Diskus 1 puff inhalation twice a day - Sertraline 100 mg by mouth every day - simvastatin 20 mg by mouth every day DISCHARGE INSTRUCTIONS: Discontinue lines. Discharge home. Activity as tolerated. Low salt diet as tolerated. The patient should follow with primary care provider in 7 to 10 days. The patient should follow with neurologist in 3 weeks. The patient is strongly recommended to establish with outpatient substance abuse/rehabilitation program. DISCHARGE CONDITION: Stable. DISCHARGE TIME: Greater than 30 minutes.
[2017-04-10] MEDS ORDERED: predniSONE 10 MG TAB PO ONE (09:00)
[2017-04-10 13:26] LABS: VOLTAGE-GATED POTASSIUM CHANNE SEE SEPARATE REPORT
[2017-04-11] MEDS ORDERED: predniSONE 5 MG TAB PO ONE (09:00)
== END 2017-04-09 13:10 | disposition home or self-care (01) | DRG 97 ==
LOC: EDBD 08:19 → M ED 08:19 → M ED INP 14:26 → M PCU 16:13 → OBSVTOIN 03-30 10:36 → M MS5PR 04-01 15:53 → M MSPAV 04-04 02:02
PROVIDERS: ADMIT Internal Medicine; ATTEND Internal Medicine
PROC: 009U3ZX Drainage of Spinal Canal, Percutaneous Approach, Diagnostic (ICD-10-PCS; principal; 2017-04-03)
DX: G04.81 Other encephalitis and encephalomyelitis (principal); J69.0 Pneumonitis due to inhalation of food and vomit; F10.239 Alcohol dependence with withdrawal, unspecified; E87.1 Hypo-osmolality and hyponatremia; E87.2 Acidosis; B37.0 Candidal stomatitis; S22.32XA Fracture of one rib, left side, initial encounter for closed fracture; G40.409 Other generalized epilepsy and epileptic syndromes, not intractable, without status epilepticus; I72.0 Aneurysm of carotid artery; G92 Toxic encephalopathy; I25.10 Atherosclerotic heart disease of native coronary artery without angina pectoris; I10 Essential (primary) hypertension; E78.5 Hyperlipidemia, unspecified; E87.6 Hypokalemia; J44.9 Chronic obstructive pulmonary disease, unspecified; F32.9 Major depressive disorder, single episode, unspecified; F17.210 Nicotine dependence, cigarettes, uncomplicated; Z88.0 Allergy status to penicillin; Z79.82 Long term (current) use of aspirin; Z79.899 Other long term (current) drug therapy; Z95.5 Presence of coronary angioplasty implant and graft; W19.XXXA Unspecified fall, initial encounter; Y92.9 Unspecified place or not applicable; Y99.8 Other external cause status

== ENCOUNTER → 2017-05-01 | Outpatient (CLI) | payer MEDICARE, MEDICAID ==
[~2017-05-01] MED LIST: ADV250INH INH; ALBU17IN INH; ASPI1TAB PO; ATEN25TA PO; ATRO1OPD PO; AZIT200S30 PO; AZIT20SS2 PO; DEPA250T32 PO; ENSULIQ10 PO; FOLI1TAB4 PO; FOSI10TA2 PO; HYOS0.1259 PO; INCR1INH IN; INCR1INH INH; ISOVUE-370 76% 100ML VIAL (Q9967) As Ordered ONE; KEPP250T5 PO; LORA1TAB12 PO; MORP1SOL PO; NICO14DI20 TD; NICO21PAT TD; NITR4TASL SL; PRED10TA2 PO; PROM50TA4 PO; SERT-138 PO; SERT50TA PO; SIMV20TA2 PO; SIMV40TA2 PO; VITA500T53 PO; VITMTA PO; ZOLP10TA2 PO
--- NOTE | 2017-05-01 17:28 | REP ---
CT of the chest with IV contrast: Comparison is the plain film study of the chest dated 04/16/2017. There are no comparison chest CTs. There is a large right infrahilar mass encasing the bronchus intermedius and right lower lobe and right middle lobe bronchi and their respective pulmonary arteries. There is atelectasis of the entire right middle lobe and a large portion of the right lower lobe. The right upper lobe is clear. There is atelectasis posteriorly in the lingula. The left upper lobe is otherwise clear. Left lower lobe is clear. There is extensive bulky mediastinal adenopathy. There is no left hilar adenopathy or axillary adenopathy. The thoracic aorta is unremarkable. Cardiac size is normal. There is no pericardial effusion. There is a small right pleural effusion. Upper abdomen: There is a 2.7 cm left adrenal mass, contiguous with the tail of the pancreas. Followup MRI might be considered for further evaluation. Impression: Large right infrahilar mass as described. Atelectasis in the right middle lobe and right lower lobe. Bulky mediastinal and right hilar adenopathy. Left adrenal mass contiguous with the tail of the pancreas. Consider MRI follow up. Signed by Lucas Ellis MD 05/01/2017 05:14 P
== END ==
LOC: M RAD 16:14
PROVIDERS: ATTEND Family Medicine
DX: C34.90 Malignant neoplasm of unspecified part of unspecified bronchus or lung (principal); J90 Pleural effusion, not elsewhere classified

== ENCOUNTER 2017-05-03 15:16 | Inpatient (IN) | payer MEDICARE, MEDICAID ==
[~2017-05-03] VITALS: Ht 152.4 cm; Wt 41.2 kg
[~2017-05-03 15:16] MED LIST changes: -ATRO1OPD PO; -DEPA250T32 PO; -ENSULIQ10 PO; -HYOS0.1259 PO; -INCR1INH IN; -ISOVUE-370 76% 100ML VIAL (Q9967) As Ordered ONE; -LORA1TAB12 PO; -MORP1SOL PO; -NICO14DI20 TD; -PROM50TA4 PO; -SERT-138 PO; -ZOLP10TA2 PO
[2017-05-03] MEDS ORDERED: PROM50TA4 PO (15:42)
[2017-05-03] MEDS ORDERED: DEPA250T32 PO (15:42)
[2017-05-03 16:55] LABS: BASO % 0.2 % (0.0-1.0); EOS % 0.3 % (0.0-3.0); LARGE UNSTAINED CELL # 0.1 K/mm3 (0.0-0.4); LARGE UNSTAINED CELL % 1.5 % (0.0-4.0); LYMPH # 0.3 K/mm3 (1.5-4.5); LYMPH % 5.9 % (24.0-44.0); MEAN CORPUSCULAR HEMOGLOBIN 35.1 pg (27.0-33.0); MEAN CORPUSCULAR VOLUME 95.8 fl (80.0-96.0); MONO # 0.4 K/mm3 (0.0-0.8); NEUTROPHILS # 4.6 K/mm3 (1.8-7.7); NEUTROPHILS % 84.1 % (36.0-66.0); PLATELET COUNT, AUTOMATED 222 k/mm3 (150-450); RED CELL DISTRIBUTION WIDTH 12.2 % (11.5-14.5); WHITE BLOOD COUNT 5.5 K/mm3 (4.0-10.0)
[2017-05-03 17:02] LABS: MEAN CORPUSCULAR HGB CONC 36.7 g/dl (32.0-36.5)
[2017-05-03 17:45] LABS: OSMOLALITY SERUM 243 MOSM/KG (280-301)
--- NOTE | 2017-05-03 17:50 | REPUSA ---
CLINICAL HISTORY: AMS. TECHNIQUE: Multiple axial brain CT scan sections were obtained from base to vertex without contrast a dministration. COMMENTS: The study shows normal configuration of sella turcica. There are no intra or extra-axial collections. There is no mass effect or midline shift. There is no evidence of hematoma formation. No hydrocephal us is present. No abnormal calcifications are noted. No significant abnormalities are seen either in the posterior fossa or supratentorial compartment. The sinuses and mastoid air cells are patent. IMPRESSION: No evidence of acute intracranial pathology. Thank you for your kind referral of this patient.
[2017-05-03 17:59] LABS: ALBUMIN 3.7 GM/DL (3.2-5.2); ALBUMIN/GLOBULIN RATIO 1.37 (1.00-1.93); ALKALINE PHOSPHATASE 247 U/L (45-117); ALT/SGPT 11 U/L (12-78); ANION GAP 11 MEQ/L (8-16); AST/SGOT 16 U/L (15-37); BILIRUBIN,DIRECT 0.3 MG/DL (0.0-0.2); BILIRUBIN,TOTAL 0.9 MG/DL (0.2-1.0); BLOOD UREA NITROGEN 4 MG/DL (7-18); CARBON DIOXIDE LEVEL 27 MEQ/L (21-32); CHLORIDE LEVEL 84 MEQ/L (98-107); CREATININE FOR GFR 0.38 MG/DL (0.55-1.02); GLOMERULAR FILTRATION RATE > 60.0 (>45); GLUCOSE, FASTING 86 MG/DL (80-110); POTASSIUM SERUM 3.5 MEQ/L (3.5-5.1); SODIUM LEVEL 122 MEQ/L (136-145); T UPTAKE 34 % (30-39); THYROXINE (T4) 7.5 UG/DL (4.5-12.0); TOTAL PROTEIN 6.4 GM/DL (6.4-8.2)
[2017-05-03 19:09] LABS: URIC ACID 1.9 MG/DL (2.6-6.0)
[2017-05-03] MEDS ORDERED: ACETAMINOPHEN TAB 650MG DOSE (2X325MG) PO PRN (19:45)
[2017-05-03] MEDS ORDERED: SERT-138 PO (19:46)
[2017-05-03] MEDS ORDERED: ZOLP10TA2 PO (19:46)
[2017-05-03] MEDS ORDERED: ENSULIQ10 PO (19:46)
[2017-05-03] MEDS ORDERED: INCR1INH IN (19:46)
[2017-05-03] MEDS ORDERED: NICO14DI20 TD (19:47)
[2017-05-03] MEDS: zolPIDEM TARTRATE 10MG TAB PO SCH (21:00)
[2017-05-03] MEDS ORDERED: NITROGLYCERIN 0.4 MG SUBL TABLET SL PRN (21:15)
[2017-05-03] MEDS ORDERED: SENOKOT S TAB PO PRN (21:15)
[2017-05-03] MEDS ORDERED: PERCOCET 5MG/325MG TAB PO PRN ×2 (21:15)
[2017-05-03] MEDS ORDERED: PERCOCET 5MG/325MG TAB PO ONE (21:15)
[2017-05-03] MEDS ORDERED: NALOXONE INJ 0.4 MG/1 ML VIAL (J2310) IV PRN (21:15)
[2017-05-03] MEDS ORDERED: LEVALBUTEROL 1.25 MG/0.5 ML CONCENTRATE NEB INH PRN (21:15)
[2017-05-03] MEDS ORDERED: MOM 30ML SUSPENSION UDC PO PRN (21:15)
--- NOTE | 2017-05-03 21:40 | REPUSA ---
CLINICAL HISTORY: Dizziness, AMS. Lung cancer. TECHNIQUE: MRI of the Brain without and with gadolinium. Multiplanar T1 and T2 weighted images of the brain were obtained. Postcontrast images were obtained in 3 planes. COMPARISON: April 03, 2017. T1 and T2: No hydrocephalus, mass effect or midline shift. FLAIR: Scattered foci of white matter hyperintensity which are nonspecific, but can be seen in patien ts with small vessel ischemic disease. Vascular flow voids: Preserved, without visible stricture or aneurysm on this non-angiographic exam. Midline: Pituitary normal size. Brain stem and corpus callosum appear normal. Sinuses: Partially visualized sinuses and mastoid aircells are clear. Diffusion Imaging: No regions of abnormal hyperintensity to suggest acute ischemia. Postcontrast: No regions of pathologic enhancement. IMPRESSION: Stable appearance of mild small vessel ischemic disease. No evidence of metastatic diseas e.
[2017-05-03] MEDS ORDERED: FUROSEMIDE 20 MG TAB PO ONE (21:45)
[2017-05-03] MEDS ORDERED: KCL 20MEQ in NS 1000ML 1,000 ML IV SCH (21:45)
[2017-05-03] MEDS ORDERED: POTASSIUM CHLORIDE 10 MEQ SR TABLET PO ONE (21:45)
[2017-05-03 21:50] VITALS: BP 157/85
[2017-05-03] MEDS: amLODIPine 10 MG TAB PO SCH (22:08)
--- NOTE | 2017-05-03 22:28 | HPE ---
DATE OF ADMISSION: 05/03/2017 PRIMARY CARE PROVIDER: Meka Melara NEUROLOGIST: Dr. Tang HOSPITALIST ATTENDING: Dr. Minerva Lugo CHIEF COMPLAINT: Confusion, altered mental status, disorientation. HISTORY OF PRESENT ILLNESS: This is a 61-year-old female with recent diagnosis of limbic encephalitis and treated with IV Solu-Medrol during previous admission on 03/30 to 04/08/2017, history of alcohol abuse with seizures, depression with suicidal ideation, generalized tonic clonic seizures, history of chronic obstructive pulmonary disease (COPD) with three pack per day smoking for several years, hypertension, possible aspiration pneumonia during seizure activity, who was in her usual state of health after hospital discharge on 04/09/2017 when she developed a several day history of worsening confusion, disorientation and altered mental status per the patient's sister, whom she lives with. The patient has been very sleepy, disoriented and confused. She has had multiple falls at home and landed on her left side, sustaining ecchymotic areas along the left upper arm and left hip and left lower extremity after falling into the bathtub. According to the patient's sister, she was evaluated by Dr. Saurabh Tang as an outpatient and was found to have metastatic bone lesions, suspicious for underlying lung cancer. Chest CT on 05/01/2017 ordered by her primary care provider showed a large right infrahilar mass encasing the bronchus intermedius and right lower lobe and right middle lobe bronchi, as well as the arteries with atelectasis in the right middle lobe and large portion of the right lower lobe. She now presents due to worsening altered mental status and now is found to have a sodium level of 122. Review of her record shows a previous sodium of 122 on 03/29/2017 with a new finding of a right large hilar mass that is concerning for small cell lung cancer; however, no biopsy was requested and currently agreeable to treating the hyponatremia but not further biopsy for definitive diagnosis. CT of the head performed due to altered mental status in the emergency room today shows no acute intracranial pathology. MRI of the brain was performed with no result at this time. Hospitalist service was called for admission for altered mental status secondary to hyponatremia, likely syndrome of inappropriate secretion of antidiuretic hormone from right infrahilar lung mass. PAST MEDICAL HISTORY: 1. Right infrahilar lung mass found on CT on 05/01/2017. 2. Metastatic lesions to the bone per the patient's sister with no documented MRI of the lumbar spine in [facility]. We will ask for records from Dr. Tang. 3. Limbic encephalitis. 4. History of seizure disorder. 5. History of alcohol abuse. 6. Depression. 7. Chronic obstructive pulmonary disease (COPD). 8. Hypertension. 9. Nondisplaced fracture of the anterior tip of the left 8th rib. 10. Coronary artery disease. 11. Hypertension. 12. Hyperlipidemia. 13. Inner ear infection and vertigo. 14. Alcohol abuse and depression. PAST SURGICAL HISTORY: 1. Carpal tunnel surgery. 2. Stent placement. SOCIAL HISTORY: Lives with her sister who is her designated healthcare proxy. Previously healthcare proxy was the patient's son. She drinks two to four beers per night. Smokes three packs a day for several years. Denies IV drug abuse. FAMILY HISTORY: Noncontributory at this time. ALLERGIES: The patient is allergic to PENICILLIN causing hives. HOME MEDICATIONS: - albuterol sulfate two puffs every 4 hours - aspirin 81 mg daily - atenolol 25 mg daily - Depakote 250 twice a day - fosinopril 5 mg daily - nicotine patch 14 mg - nitroglycerin as needed - promethazine 25 mg four times a day for nausea - salmeterol - Advair Diskus 250/50 - sertraline 100 mg daily - simvastatin 20 mg daily - Ambien 10 mg at night - Ensure daily - Incruse Ellipta inhaled daily PHYSICAL EXAMINATION: VITAL SIGNS: Temperature is 97.8, pulse 100, respiratory rate 20, blood pressure 167/91, 96% on room air. GENERAL: Awake, alert, oriented to person only. Disoriented to time. Oriented to place. Answers questions appropriately. Anicteric sclerae. No jaundice. No icterus. No jugular venous distention (JVD) or thyromegaly. LUNGS: Clear to auscultation. No wheezing or rales or rhonchi. HEART: S1, S2. Sinus rhythm. ABDOMEN: Soft, nontender, nondistended. Positive bowel sounds. EXTREMITIES: No cyanosis, clubbing or pitting edema. Multiple ecchymotic areas on left upper arm from recent fall, as well as the left hip and lower extremity. EKG showed sinus rhythm with a ventricular rate of 66. No acute ischemia. White count is 5.5, hemoglobin 13, hematocrit 36, platelet count 222. Sodium 122, potassium 3.5, chloride 84, bicarbonate 27, BUN 4, creatinine 0.38, glucose of 86, osmolality 248, uric acid is 1.9. Total bilirubin 0.9, direct bilirubin 0.3, AST 16, ALT 11, alkaline phosphatase 247, total CK less than 10. Urine osmolality 150, creatinine 26, total protein 6.1. Sodium 125, potassium 10.5, chloride of 18. CT of the chest on 05/01/2017 shows a large right infrahilar mass encasing the bronchus intermedius and right lower lobe, right middle lobe bronchi with their respective pulmonary arteries, 2.7 cm left adrenal mass, contiguous with tail of the pancreas, followup MRI. MRI of the brain pending official report. Hip x-ray on the left pending report. ASSESSMENT AND PLAN: This is a 61-year-old female with a history of coronary artery disease, hypertension, hypercholesterolemia, limbic encephalitis, alcohol abuse with seizures, depression with suicidal ideation, generalized tonic clonic seizures, chronic obstructive pulmonary disease (COPD), hypertension, aspiration pneumonia with seizure activity, status post seizure activity and admitted due to worsening mental status changes, disorientation, confusion and sleepiness and was found to have hyponatremia with sodium 122. Per the patient's sister, she was evaluated for her back pain and multiple falls and was found to have metastatic lesions on the bone by her neurologist, Dr. Saurabh Tang, on MRI of the spine. CT of the chest ordered by her primary care physician, Dr. Meka Melara, showed a large right hilar mass. The patient was admitted for acute encephalopathy secondary to severe hyponatremia in light of a right infrahilar lung mass with history of smoking. The patient will be admitted as an inpatient for two midnights, assigned to Dr. Lugo at 7:00 a.m. on 05/04/2017, hospitalist service. IMPRESSION: 1. Acute metabolic encephalopathy, most likely secondary to severe hyponatremia and symptomatic hyponatremia. At this time, the patient will be admitted to intensive care unit (ICU) with every four hourly basic metabolic panel (BMP), fluid restriction for presumed syndrome of inappropriate secretion of antidiuretic hormone, nephrology consultation for sodium and fluid management. 2. Mental status changes. Thought to be secondary to severe hyponatremia. She currently has no seizure activity. No obtundation or sedation. Denies any headaches. 3. Large right infrahilar mass with history of more than pack year history of smoking. At this time, the patient is opting not to proceed with biopsy. Per the sister at the bedside, no other invasive testing where family and patient are agreeable to treating the hyponatremia but no invasive testing or biopsy to document type of lung cancer. We will try to obtain records from Dr. Saurabh Tang regarding the sister's claims that MRI of the spine shows metastatic lesions. We will send for a bone scan and await results of the MRI of the brain. The patient is agreeable to hospice. Per the sister, whom she lives with, she is unable to care for her at home and therefore the patient will need placement. 4. History of coronary artery disease. Continue on home medications with aspirin, atenolol, simvastatin, nitroglycerin as needed. 5. History of alcohol abuse with withdrawal seizures. The patient denies any recent alcohol use. Monitor for withdrawal symptoms. 6. History of limbic encephalitis. Managed by Dr. Tang previously. At this time, may consider consulting neurology if new findings overnight. For now, we will not consult neurology as the patient's altered mental status is most likely secondary to severe hyponatremia with sodium level of 122 from the lung mass. 7. Hyponatremia. Most likely secondary to SIADH and dehydration. Defer to Dr. Peres for fluid and salt management. Consistent with this is a very low uric acid of 1.9. 8. Full supportive care for hyponatremia and seizure precautions. 9. Hypertension, controlled. Due to hyponatremia, fosinopril has been discontinued. She has been placed on Norvasc. 10. History of chronic obstructive pulmonary disease (COPD), DuoNeb as needed. May resume Incruse Ellipta. 11. Deep vein thrombosis (DVT) prophylaxis. 12. Chronic back pain with questionable metastatic lesions. Obtain report from Dr. Tang's office regarding metastatic lesions to the spine. Await bone scan. May benefit from radiation treatment if truly metastatic from the lung cancer. Pain management consultation and as needed Percocet and morphine. DISPOSITION: Patient's sister is unable to care for her at home, and will need placement and hospice referral. [facility]
[2017-05-03] MEDS: DIVALPROEX 250 MG TAB PO SCH (23:38)
[2017-05-04] VITALS: BP 121/72
[2017-05-04] MEDS: ONDANSETRON 4MG/2ML VIAL (J2405) IV PRN ×2 (00:11→11:00)
[2017-05-04 04:00] VITALS: BP 120/78
[2017-05-04 06:54] LABS: BASO % 0.5 % (0.0-1.0); EOS % 0.7 % (0.0-3.0); LARGE UNSTAINED CELL # 0.1 K/mm3 (0.0-0.4); LARGE UNSTAINED CELL % 1.5 % (0.0-4.0); LYMPH # 0.4 K/mm3 (1.5-4.5); MEAN CORPUSCULAR HEMOGLOBIN 35.1 pg (27.0-33.0); MONO # 0.4 K/mm3 (0.0-0.8); MONO % 10.3 % (0.0-5.0); NEUTROPHILS # 2.8 K/mm3 (1.8-7.7); NEUTROPHILS % 77.1 % (36.0-66.0); PLATELET COUNT, AUTOMATED 193 k/mm3 (150-450); RED CELL DISTRIBUTION WIDTH 12.4 % (11.5-14.5); WHITE BLOOD COUNT 3.6 K/mm3 (4.0-10.0)
[2017-05-04 06:55] LABS: ANION GAP 12 MEQ/L (8-16); BLOOD UREA NITROGEN 3 MG/DL (7-18); CALCIUM LEVEL 7.7 MG/DL (8.8-10.2); CARBON DIOXIDE LEVEL 24 MEQ/L (21-32); CHLORIDE LEVEL 94 MEQ/L (98-107); CREATININE FOR GFR 0.34 MG/DL (0.55-1.02); GLOMERULAR FILTRATION RATE > 60.0 (>45); GLUCOSE, FASTING 80 MG/DL (80-110); POTASSIUM SERUM 3.5 MEQ/L (3.5-5.1); SODIUM LEVEL 130 MEQ/L (136-145)
[2017-05-04 06:58] LABS: MEAN CORPUSCULAR HGB CONC 36.6 g/dl (32.0-36.5)
--- NOTE | 2017-05-04 07:36 | REP ---
A PA and lateral chest, patient sitting: Comparison is a chest CT of 05/01 2017. The patient has a known large right infrahilar mass, complete atelectasis of the right middle lobe and atelectasis in the right lower lobe and discoid atelectasis posteriorly in the lingula. There is also a right pleural effusion. The right pleural effusion has increased. The right middle lobe and lower lobe atelectasis is unchanged. Right upper lobe is clear. There is faintly visible density in the lingula compatible with the atelectasis on the comparison CT. Cardiac size is upper normal. The hui, mediastinum, and bony thorax are unremarkable. Signed by Lucas Ellis MD 05/04/2017 07:27 A
--- NOTE | 2017-05-04 07:37 | REP ---
AP pelvis and bilateral hips: AP pelvis: There is no pelvic fracture. The right left hip articulations are unremarkable. The sacroiliac articulations are unremarkable. There is a calcification inferiorly to the right of midline, likely phleboliths. Impression: No pelvic fracture. Right hip two views: Mineralization joint space are normal. There is no fracture or dislocation. No calcification of foreign body. Impression: Negative right hip. Left hip two views: Mineralization and joint space are normal. There is no fracture or dislocation. No calcification of foreign body. Impression: Negative left hip. Signed by Lucas Ellis MD 05/04/2017 07:29 A
[2017-05-04 08:00] VITALS: BP 123/75
[2017-05-04] MEDS ORDERED: ENOXAPARIN 40 MG/0.4 ML SYRINGE (J1650) SC SCH (09:00)
[2017-05-04] MEDS ORDERED: ENTER DRUG NAME HERE (PATIENT'S OWN MED) INH SCH (09:00)
[2017-05-04] MEDS ORDERED: SERTRALINE 100 MG TAB PO SCH (09:00)
[2017-05-04] MEDS ORDERED: SIMVASTATIN 20 MG TAB PO SCH (09:00)
[2017-05-04] MEDS ORDERED: POTASSIUM CHLORIDE 10 MEQ SR TABLET PO ONE (09:15)
[2017-05-04] MEDS: ASPIRIN 81 MG ENTERIC TAB PO SCH (09:19)
[2017-05-04] MEDS: DIVALPROEX 250 MG TAB PO SCH ×2 (09:22→19:47)
[2017-05-04] MEDS: ATENOLOL 25 MG TAB PO SCH (09:23)
[2017-05-04] MEDS: amLODIPine 10 MG TAB PO SCH (09:24)
[2017-05-04] MEDS: NICOTINE 14 MG/24 HR TRANSDERMAL TD SCH (09:25)
--- NOTE | 2017-05-04 09:31 | CR ---
DATE OF CONSULTATION: 05/03/2017 REASON FOR CONSULTATION: Hyponatremia. HISTORY OF PRESENT ILLNESS: Ms. Alves is a 61-year-old female who was brought to emergency room today due to altered mentation. She is noticed to have a sodium level of 122. A nephrology consultation was requested as the patient had a sodium level of 139 just recently when she was discharged from [facility]. The patient was admitted to [facility] in March and at that time she was treated for possible encephalitis. She has known history of hypertension, chronic obstructive pulmonary disease (COPD), depression, coronary artery disease, chronic alcohol and tobacco use and recent history of admission with seizures. At that time, she underwent extensive workup including chest x-ray and MRI and CT scan of her head. She also had a spinal tap done. The patient lives with her sister who noticed worsening altered mentation and brought her to the emergency room today. She was found to have a sodium level of 122. The patient also had a chest CT scan done just a couple of days ago as an outpatient which showed a right sided lung mass. PAST MEDICAL AND SURGICAL HISTORY: Significant for: 1. Hypertension. 2. Chronic obstructive pulmonary disease (COPD). 3. History of recent seizure disorder with possible limbic encephalitis. 4. History of depression. 5. History of nondisplaced fracture of her left 8th rib. 6. Coronary artery disease. 7. Hyperlipidemia. 8. History of alcohol use. 9. Chronic tobacco use. 10. History of metastatic lesion to the bone and a large right lung mass. PAST SURGICAL HISTORY: Significant for: 1. Carpal tunnel surgery. 2. Coronary stent placement. PERSONAL AND SOCIAL HISTORY: The patient lives with her sister who is her designated healthcare proxy. The patient drinks two to four beers every day and smokes three packs a day for several years. FAMILY HISTORY: Negative for premature coronary artery disease or lung cancer. ALLERGIES: The patient has allergy to PENICILLIN. HOME MEDICATIONS: Her home medications include: - aspirin 81 mg daily - atenolol 25 mg daily - Depakote 250 mg twice daily - lisinopril 5 mg daily - albuterol 2 puffs every 4 hours as needed - nicotine patch 40 mg daily - nitroglycerin as needed - Advair discus 250/50 twice daily - sertraline 100 mg daily - simvastatin 20 mg daily - Ambien 10 mg at bedtime - Incruse Ellipta inhaler daily REVIEW OF SYSTEMS: The patient is confused, though she is able to answer simple questions but she is not fully oriented. The patient's sister denies any fever or chills. The patient's sister reports a recent fall at home in which the patient bruised her left arm. She has complained of pain in her rib cage. Head and neck is significant for headache. She has been treated for limbic encephalitis recently. Head CT scan was negative for acute infarct or bleed. Nose and throat are unremarkable. Cardiovascular system is significant for hypertension. There is no chest pain at present. Respiratory system is negative for cough or hemoptysis. She has history of heavy smoking for many years. She denies any pleuritic type of chest pain. GI system is significant for poor oral intake. The patient denies any vomiting or diarrhea. system is negative for dysuria or hematuria. Endocrine system is negative for diabetes or thyroid problems. Psychosocial system is significant for depression and recent history of seizures. Neurological system is negative for stroke. She has been treated for limbic encephalitis and seizures recently. Hematological system is negative for anticoagulation. She has a bruise on her left arm. PHYSICAL EXAMINATION: Temperature 97.8 degrees Fahrenheit, heart rate 86 per minute and respiratory rate 18 per minute. Blood pressure 157/85 mmHg and oxygen saturation 95% on room air. Head: Is atraumatic. Ears, nose and throat are unremarkable. Pupils equal and reactive to light and sclera is anicteric. Neck is supple and without JVD or thyroid enlargement. There is no oral thrush or ulcers. Heart: Sounds are regular and without gallop or murmur. Lungs: Sound clear to auscultation bilaterally. Abdomen is soft and nontender. Bowel sounds are normal. There is no palpable organomegaly. Extremities: Have no cyanosis or clubbing. She has a bruise on her left forearm, it seems to be at least several days old. Neurologically, she is confused though awake and able to answer simple questions but at times she does not make any sense in her answers. LABORATORY DATA: WBC count 5.5, hemoglobin 13.3, hematocrit 36.3. Platelets 222. Sodium 122, potassium 3.5. BUN 4 and creatinine 0.38. Glucose 86 and osmolality 243. Uric acid level 1.9 and lactic acid 0.9. Total protein 6.4 and albumin 3.7. Urinalysis showed no protein and no blood. Urine osmolality is 150, urine creatinine 6.7, BUN sodium is 25. PROBLEMS: 1. Hyponatremia. Volume status seems to be well compensated. Her TSH level is normal at 3.11. She has no history for adrenal insufficiency and her blood pressure is somewhat high, so I do not feel that clinically she has any evidence for adrenal insufficiency. Her urine osmolality is low and fractional excretion of sodium seems to be about 1.0%. She is likely to have inappropriate ADH related to her lung cancer. Recent CT scan done as an outpatient showed a large mass in her right lung. The patient has poor oral intake of diet and also has history of drinking every day. Alcohol use and decreased protein intake probably have contributed to her low sodium. At this point, we will put her on fluid restriction of 1500 per day and start her on normal saline IV at 60 mL/hr. In view of her hypertension, I will give her a dose of 20 mg Lasix along with IV normal saline. Electrolytes will be checked again tomorrow morning. 2. Hypokalemia. This is most likely nutritional again related to drinking beer and no nutrition. The patient will be given 20 mEq of potassium chloride by mouth and 20 mEq is being added in the IV fluid. Her electrolytes will be checked again tomorrow morning. 3. Right lung cancer. The patient has heavy smoking history for many years. She has a large mass in her right lung. The patient's sister reports that the patient has known wishes that she does not want any major surgeries and she would consider nonaggressive care plan. The patient is probably not a surgical candidate as lung cancer is right at the hilar area and has metastatic possibility. There is some mention in the admission history and physical that the patient had another MRI done as outpatient which did show some bone metastasis. She had an MRI of her brain today which did not show any evidence of metastatic disease. I thank you for involving me in the care of Ms. Alves. I will follow her along with you.
[2017-05-04] MEDS ORDERED: POTASSIUM CHL PWD 20 MEQ PACKET PO ONE (10:00)
[2017-05-04] MEDS ORDERED: POTASSIUM CHLORIDE 10% LIQ 20 MEQ/15 ML UDC PO ONE (10:00)
--- NOTE | 2017-05-04 13:03 | IPN ---
DATE OF VISIT: 05/04/2017 Ms. Alves is seen this morning on her bedside in intensive care unit. She remains confused and disoriented. Her sister is present in the room. Patient has difficulty swallowing her pills. She denies any nausea or vomiting. She has no fever or chills. On physical exam, temperature 98.0 degrees Fahrenheit, heart rate 91 per minute. Blood pressure is 120/78 mmHg andoxygen saturation 95% on room air. Head is atraumatic. Neck is supple and without any jugular venous distention (JVD) or thyroid enlargement. Heart sounds are regular and lungs with slightly diminished breath sounds in the left base, but significantly diminished breath sounds at the right lower one-third. Abdomen is soft and nontender and bowel sounds are normal. Extremities have no cyanosis or clubbing. Today's labs show WBC count 3.6, hemoglobin 12.6 and hematocrit 34.3. Platelets are 193. Sodium is up to 130 and potassium 3.5. BUN 3 and creatinine 0.34. Glucose is 80 and calcium 7.7. PROBLEMS: 1. Hyponatremia. Sodium level has improved up to 130. Normal saline is being stopped. She will be allowed to continue with oral fluid intake. Electrolytes will be sent again later today. We will continue with fluid restriction. 2. Hypokalemia. This is nutritional and patient will be given another dose of 40 mEq of potassium chloride. Electrolytes will be checked again tomorrow morning. 3. Lung cancer. She has a large right-sided mass in her hilar area. Patient's sister is present and I discussed with her at length about her prognosis. In view of her altered mentation, patient herself is not able to make any decisions about her care plan. Patient's sister is health care proxy and she is waiting for patient's son to arrive in order to make final decision. Family is leaning towards hospice care. 4. Hypertension. Blood pressure is optimally controlled at present. MTDD
[2017-05-04] MEDS ORDERED: SCOPOLAMINE 1.5 MG TRANSDERMAL TD PRN (14:30)
--- NOTE | 2017-05-04 15:37 | IPN ---
DATE: 05/04/2017 SUBJECTIVE: The patient denies any complaints. She denies any pain. She knows that she is in [facility] but she cannot tell me the year or the month. She does not know why she is in the hospital. She could not tell me who the president is. OBJECTIVE: VITAL SIGNS: Temperature 96.7, pulse 84, respiratory rate 18, blood pressure 123/75, oxygen saturation 95% on room air. GENERAL: She is a frail, elderly, female laying in bed at a 30 degree angle. She appears tired and sleepy but easily arousable to verbal stimuli, but then shortly thereafter, she closes her eyes and then falls back to sleep. NEUROLOGIC: Cranial nerves II-XII appear to be grossly intact, although she is not cooperative with the examination. CARDIOVASCULAR: S1, S2, regular. RESPIRATORY: Fairly clear. ABDOMEN: Benign. EXTREMITIES: No clubbing, cyanosis, or edema. LABORATORY STUDIES: WBC 3.6, hemoglobin 12.6, platelet count 193. Chemistry panel: Sodium 130 up from 122, potassium 3.5, chloride 94, bicarbonate 24, BUN 3, creatinine 0.3. Microbiology is pending. The patient had an MRI of the brain that revealed stable appearance of small vessel ischemic disease. No evidence of metastatic disease. ASSESSMENT AND PLAN: This is a 61-year-old female with metastatic stage IV lung cancer of unclear etiology. The patient has refused biopsy in the past. She is hypernatremic related to syndrome of inappropriate secretion of antidiuretic hormone (SIADH) related to aggressive lung cancer encasing vessels in the airway. I did have a family meeting with both of her healthcare proxies as she does not appear to be in any position to make medical decisions for herself. Both of them agree that she had clearly delineated her goals of care and her wishes prior to this episode. She would not want to have any aggressive interventions taken. They have elected for COMFORT MEASURES ONLY and seeking placement at the hospice house. A family meeting was held and all questions were answered to their satisfaction. A medical orders for life-sustaining treatment (MOLST) form was completed and witnessed by nursing staff and the patient's sister. At this time, the patient is made COMFORT MEASURES ONLY. Laboratories and vital signs are discontinued. No further imaging. Nonessential medications are discontinued. A hospice consultation has been placed with the intent to disposition the patient to the hospice house as per the family's request.
[2017-05-04] MEDS: MORPHINE 10MG/0.5ML ORAL CONCENTRATE SOLUTION U/D SL PRN ×2 (19:47→22:59)
[2017-05-04] MEDS: zolPIDEM TARTRATE 10MG TAB PO SCH (19:47)
--- NOTE | 2017-05-04 20:22 | ECGEPIP ---
Stationary ECG Study [facility] - ED Test Date: 2017-05-03 Pat Name: YAN ONEAL Department: Room: - Gender: F Quality Assurance Representative: DICKSON : 1955 Requested By: ASHLEY HARRIS Order Number: [id number] Reading MD: Winnie Davidson Measurements Intervals [place] Rate: 86 P: 42 CO: 132 QRS: 89 QRSD: 106 T: 52 QT: 396 QTc: 476 Interpretive Statements SINUS RHYTHM NSTTW ABNORMALITY BASELINE ARTIFACT LIMITS INTERPRETATION SIMILAR 03/29/17 Electronically Signed On 05-04-2017 20:22:21 EDT by Winnie Davidson
[2017-05-05] MEDS: MORPHINE 10MG/0.5ML ORAL CONCENTRATE SOLUTION U/D SL PRN ×2 (00:42→04:20)
[2017-05-05] MEDS: LORazepam 1 MG TAB PO PRN ×3 (01:55→12:48)
[2017-05-05] MEDS ORDERED: MORPHINE 10MG/0.5ML ORAL CONCENTRATE SOLUTION U/D SL PRN (06:00)
[2017-05-05] MEDS: ATENOLOL 25 MG TAB PO SCH (12:47)
[2017-05-05] MEDS: ASPIRIN 81 MG ENTERIC TAB PO SCH (12:48)
[2017-05-05] MEDS: DIVALPROEX 250 MG TAB PO SCH ×2 (12:48→21:51)
[2017-05-05] MEDS: NICOTINE 14 MG/24 HR TRANSDERMAL TD SCH (12:48)
[2017-05-05] MEDS: zolPIDEM TARTRATE 10MG TAB PO SCH (21:50)
[2017-05-05] MEDS: ALBUTEROL 90 MCG/ACT 8GM HFA INHALER INH PRN (22:00)
[2017-05-06] MEDS ORDERED: ATRO1OPD PO (08:23)
[2017-05-06] MEDS ORDERED: LORA1TAB12 PO ×2 (08:23→08:39)
[2017-05-06] MEDS ORDERED: HYOS0.1259 PO ×2 (08:23→08:25)
[2017-05-06] MEDS ORDERED: MORP1SOL PO ×2 (08:23→08:39)
[2017-05-06 08:41] VITALS: BP 136/84
[2017-05-06] MEDS: ATENOLOL 25 MG TAB PO SCH (08:41)
[2017-05-06] MEDS: ASPIRIN 81 MG ENTERIC TAB PO SCH (08:42)
[2017-05-06] MEDS: NICOTINE 14 MG/24 HR TRANSDERMAL TD SCH (08:42)
[2017-05-06] MEDS: DIVALPROEX 250 MG TAB PO SCH (08:42)
[2017-05-06] MEDS: ALBUTEROL 90 MCG/ACT 8GM HFA INHALER INH PRN (10:06)
--- NOTE | 2017-05-06 11:34 | DSES ---
DATE OF ADMISSION: 05/03/2017 DATE OF DISCHARGE: 05/06/2017 PRIMARY CARE PROVIDER: None listed. ADOPTION COUNSELOR: Deanne Peres MD PAIN MANAGEMENT: Gina Lamb CONSULTANTS: Deanne Peres MD PROCEDURES: None. COMPLICATIONS: None. ADMISSION/DISCHARGE DIAGNOSES: 1. Metabolic encephalopathy. 2. 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 3. 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 4. Protein-calorie malnutrition with body mass index (BMI) of 17.7. 5. Again, hyponatremia, most likely multifactorial, likely related to her lung cancer, previous alcohol use, and decreased protein intake. 6. History of coronary disease. 7. History of alcohol abuse with prior history of withdrawal seizures. 8. Prior history of limbic encephalitis. 9. Hypertension. 10. History of chronic obstructive pulmonary disease (COPD). BRIEF HOSPITAL COURSE: The patient was admitted on 05/03/2017 with significant hyponatremia, acute respiratory failure with underlying history of COPD. Her CT scan on 05/01/2017 by her primary care provider had shown a large right infrahilar mass encasing the bronchus and the intermedius in the right lower lobe and right middle lobe bronchi involving the arteries. She was confused. Head CT did not show any intracranial pathology. MRI of the brain performed with no significant findings. However, the patient does have a likely SIADH related to lung cancer and is felt to be end-stage. Discussion with the patient and healthcare proxy was ensued and documented by Dr. Lugo, and the patient elected comfort measures and hospice. Hospice health is available to her, and she will be discharge directly there. Otherwise, her mental status has improved, her pain control was adequate according to her, and she is happy to be going to hospice, and is planning visiting with her family. Discharge condition is stable. DISPOSITION: Discharged to [facility]ospice [facility]. DISCHARGE MEDICATIONS: - hyoscyamine 0.125 mg by mouth every 4 hours as needed - lorazepam 0.5 mg every 4 hours as needed - Roxanol 20 mg per 0.5 mL 0.25 to 1 mL by mouth or sublingually every 2 hours as needed - albuterol inhaler as directed - Ensure daily - Incruse Ellipta 62.5 mcg inhaler daily - Nicoderm patch daily - Advair Diskus 250 per 50 one inhalation twice a day DISCHARGE INSTRUCTIONS: The patient be discharged to Hospice House with comfort measures only ordered. Hospice medications have been sent in to [facility]. Activity as tolerated. Regular diet as tolerated. The discharge took approximately 35 minutes.
== END 2017-05-06 10:51 | disposition hospice, inpatient (51) | DRG 180 ==
LOC: M ED 15:16 → M ED INP 19:33 → M ICU 21:42 → M MSPAV 05-04 16:25
PROVIDERS: ADMIT General Practice; ATTEND Hospitalist
DX: C34.01 Malignant neoplasm of right main bronchus (principal); G93.41 Metabolic encephalopathy; E22.2 Syndrome of inappropriate secretion of antidiuretic hormone; C79.51 Secondary malignant neoplasm of bone; E46 Unspecified protein-calorie malnutrition; N39.0 Urinary tract infection, site not specified; F10.10 Alcohol abuse, uncomplicated; Z51.5 Encounter for palliative care; Z66 Do not resuscitate; F32.9 Major depressive disorder, single episode, unspecified; J44.9 Chronic obstructive pulmonary disease, unspecified; F17.210 Nicotine dependence, cigarettes, uncomplicated; B95.2 Enterococcus as the cause of diseases classified elsewhere; I10 Essential (primary) hypertension; E87.6 Hypokalemia; G40.409 Other generalized epilepsy and epileptic syndromes, not intractable, without status epilepticus; R29.6 Repeated falls; I25.10 Atherosclerotic heart disease of native coronary artery without angina pectoris; E78.5 Hyperlipidemia, unspecified; Z88.0 Allergy status to penicillin; Z79.82 Long term (current) use of aspirin; Z79.899 Other long term (current) drug therapy; Z79.51 Long term (current) use of inhaled steroids; Z95.5 Presence of coronary angioplasty implant and graft